=== PATIENT | male | born 1970 | race American Indian/Alaskan Native ===

== ENCOUNTER 2017-04-02 02:55 | Emergency (ER) | payer OTHER ==
[2017-04-02 11:10] LABS: Basophils % (Auto) 0.6 % (0.0-1.8); Eosinophils % (Auto) 0.9 % (0.0-4.3); Hematocrit 44.3 % (35.5-45.6); Hemoglobin 15.5 gm/dl (11.8-15.2); Mean Corpuscular HGB Conc 35 % (32-34); Mean Corpuscular Hemoglobin 30 pg (28-32); Mean Corpuscular Volume 85 fl (84-94); Platelet Count 216 K/mm3 (140-440); Red Blood Count 5.19 M/mm3 (3.65-5.03); Red Cell Distribution Width 14.1 % (13.2-15.2); White Blood Count 8.7 K/mm3 (4.5-11.0)
[2017-04-02 11:27] LABS: Alanine Aminotransferase 21 units/L (7-56); Albumin 4.4 g/dL (3.9-5); Albumin/Globulin Ratio 1.4 %; Alkaline Phosphatase 102 units/L (35-129); Anion Gap 17 mmol/L; BUN/Creatinine Ratio 3; Blood Urea Nitrogen 3 mg/dL (9-20); Calcium 9.4 mg/dL (8.4-10.2); Carbon Dioxide 25 mmol/L (22-30); Chloride 96.5 mmol/L (98-107); Glucose 128 mg/dL (75-100); Lipase 94 units/L (13-60); Potassium 4.5 mmol/L (3.6-5.0); Sodium 134 mmol/L (137-145); Total Protein 7.6 g/dL (6.3-8.2)
[2017-04-02 14:22] LABS: Bilirubin,Urine NEG (Negative); Blood,Urine NEG (Negative); Ketones,Urine NEG (Negative); Leukocyte Esterase,Urine NEG (Negative); Nitrite,Urine NEG (Negative); Protein,Urine <15 mg/dL mg/dL (Negative); Urobilinogen,Urine < 2.0 mg/dL (<2.0)
[2017-04-02 14:28] LABS: RBC,Urine < 1.0 /HPF (0.0-6.0); WBC,Urine < 1.0 /HPF (0.0-6.0)
[2017-04-02] MEDS ORDERED: CARAFATE PO ONE (15:10)
[2017-04-02] MEDS ORDERED: DILAUDID IV ONE ×2 (15:10→18:34)
[2017-04-02] MEDS ORDERED: PEPCID IV ONE (15:10)
[2017-04-02] MEDS ORDERED: BENTYL PO ONE (15:10)
--- NOTE | 2017-04-02 15:11 | Emergency Department Report ---
ED Abdominal Pain HPI - General Chief Complaint: Abdominal Pain Stated Complaint: ABD PAIN Time Seen by Provider: 04/02/17 14:35 Source: patient, RN notes reviewed, old records reviewed Mode of arrival: Ambulatory Limitations: No Limitations - History of Present Illness Initial Comments: This is a 46-year-old male, previously known to this provider. Has a past medical history of chronic pancreatitis, tobacco and alcohol consumption Primary care Dr.: Dr. Radha Cornejo Patient also reports that he has chronic pain and for multiple musculoskeletal issues, sees a pain specialist, and typically takes oxycodone 10 mg every 6 hours. The patient presents to the ER with a complaint of epigastric pain and lower quadrant abdominal pain for one month. Patient reports that the pain started after he ate something. He believes he ate at [employer] about a month ago, and "has not been right since. " He has no testicular pain, and he denies hematuria and urinary frequency. He reports his symptoms feel similar to prior episodes of pancreatitis. His pain is intermittent, and increases with palpation and decreases with rest. He denies diarrhea. He reports that he feels constipated. He denies cough and mucus production, and he denies chest pain and severe shortness of breath. MD Complaint: abdominal pain -: Gradual, week(s) Location: diffuse Severity: moderate Severity scale (0 -10): 10 Quality: cramping Consistency: intermittent Improves With: rest Worsens With: movement Associated Symptoms: constipation. denies: vomiting, fever, dysuria - Related Data Home Medications Medication Instructions Recorded Confirmed Last Taken HYDROcodone/APAP 5-325 [[place] 5 - 325 mg PO Q6HR 12/20/13 07/13/14 01/05/14 5-325 mg TAB] Previous Rx's Medication Instructions Recorded Last Taken Type Ondansetron [Zofran ODT TAB] 4 mg PO Q8HR PRN #10 tab.rapdis 07/13/14 Unknown Rx Promethazine [Phenergan] 25 mg PO Q6H PRN #10 tablet 07/13/14 Unknown Rx Acetaminophen [Tylenol Arthritis] 650 mg PO Q6HR PRN #30 tablet.er 04/02/17 Unknown Rx Ibuprofen [Motrin] 600 mg PO Q8H PRN #30 tablet 04/02/17 Unknown Rx Ondansetron [Zofran Odt] 4 mg PO Q8HR PRN #20 tab.rapdis 04/02/17 Unknown Rx Sucralfate [Carafate] 1 gm PO ACHS #120 udc 04/02/17 Unknown Rx Allergies Allergy/AdvReac Type Severity Reaction Status Date / Time No Known Allergies Allergy Verified 03/12/13 23:13 ED Review of Systems ROS: Stated complaint: ABD PAIN Other details as noted in HPI Constitutional: denies: fever Eyes: denies: vision change ENT: denies: epistaxis Respiratory: denies: cough Cardiovascular: denies: chest pain Gastrointestinal: abdominal pain Genitourinary: denies: testicular pain Musculoskeletal: as per HPI Skin: denies: lesions Neurological: denies: headache Psychiatric: anxiety ED Past Medical Hx - Past Medical History Previous Medical History?: Yes Additional medical history: chronic pancreatitis. Chronic Pain - Surgical History Past Surgical History?: No - Social History Smoking Status: Current Every Day Smoker Substance Use Type: Alcohol, Prescribed - Medications Home Medications: Home Medications Medication Instructions Recorded Confirmed Last Taken Type HYDROcodone/APAP 5-325 [[place] 5 - 325 mg PO Q6HR 12/20/13 07/13/14 01/05/14 History 5-325 mg TAB] Ondansetron [Zofran ODT TAB] 4 mg PO Q8HR PRN #10 tab.rapdis 07/13/14 Unknown Rx Promethazine [Phenergan] 25 mg PO Q6H PRN #10 tablet 07/13/14 Unknown Rx Acetaminophen [Tylenol Arthritis] 650 mg PO Q6HR PRN #30 tablet.er 04/02/17 Unknown Rx Ibuprofen [Motrin] 600 mg PO Q8H PRN #30 tablet 04/02/17 Unknown Rx Ondansetron [Zofran Odt] 4 mg PO Q8HR PRN #20 tab.rapdis 04/02/17 Unknown Rx Sucralfate [Carafate] 1 gm PO ACHS #120 udc 04/02/17 Unknown Rx ED Physical Exam - General Limitations: No Limitations General appearance: alert, in no apparent distress - Head Head exam: Present: atraumatic, normocephalic - Eye Eye exam: Present: normal appearance, EOMI. Absent: nystagmus - ENT ENT exam: Present: normal exam, normal orophraynx, mucous membranes moist, normal external ear exam - Neck Neck exam: Present: normal inspection, full ROM - Respiratory Respiratory exam: Present: normal lung sounds bilaterally. Absent: respiratory distress, wheezes, rales, rhonchi, stridor, decreased breath sounds - Cardiovascular Cardiovascular Exam: Present: regular rate, normal rhythm, normal heart sounds. Absent: bradycardia, tachycardia, irregular rhythm, systolic murmur, diastolic murmur, rubs, gallop - GI/Abdominal GI/Abdominal exam: Present: soft, tenderness, normal bowel sounds, other (there is epigastric tenderness. There is lower quadrant tenderness, no redness, pus or streaking). Absent: distended, guarding, rebound, rigid, pulsatile mass - Rectal Rectal exam: Present: deferred - exam: Present: normal inspection. Absent: testicular tenderness External exam: Present: normal external exam, other (there is no testicular tenderness. There is normal testicular lie bilaterally. There is normal cremasteric reflex bilaterally.) - Extremities Exam Extremities exam: Present: normal inspection, full ROM, normal capillary refill. Absent: pedal edema, joint swelling, calf tenderness - Back Exam Back exam: Present: normal inspection, full ROM. Absent: paraspinal tenderness - Neurological Exam Neurological exam: Present: alert, oriented X3, normal gait, other (Extraocular movements intact. Tongue midline. No facial droop. Facial sensation intact to light touch in the V1, V2, V3 distribution bilaterally. 5 and 5 strength in 4 extremities.. Sensation is intact to light touch in 4 extremities.). Absent : motor sensory deficit - Psychiatric Psychiatric exam: Present: normal affect, normal mood - Skin Skin exam: Present: warm, dry, intact, normal color. Absent: rash ED Course Vital Signs 04/02/17 04/02/17 04/02/17 03:00 03:01 14:18 Temperature 98.3 F 98.3 F Pulse Rate 73 73 Respiratory 16 20 Rate Blood Pressure 177/93 Blood Pressure 177/93 [Right] O2 Sat by Pulse 96 96 Oximetry 04/02/17 17:28 Temperature Pulse Rate Respiratory 20 Rate Blood Pressure Blood Pressure [Right] O2 Sat by Pulse Oximetry - Reevaluation(s) Reevaluation #1: 04/02/17 18:43 Patient reports that his living supervisor is Dr. Mir Franco, and he will follow up with him next week. ED Medical Decision Making - Lab Data Result diagrams: 04/02/17 10:54 04/02/17 10:54 Vital Signs 04/02/17 04/02/17 04/02/17 03:00 03:01 14:18 Temperature 98.3 F 98.3 F Pulse Rate 73 73 Respiratory 16 20 Rate Blood Pressure 177/93 Blood Pressure 177/93 [Right] O2 Sat by Pulse 96 96 Oximetry 04/02/17 17:28 Temperature Pulse Rate Respiratory 20 Rate Blood Pressure Blood Pressure [Right] O2 Sat by Pulse Oximetry Lab Results 04/02/17 04/02/17 04/02/17 Range/Units 10:54 10:54 13:56 WBC 8.7 (4.5-11.0) K/mm3 RBC 5.19 H (3.65-5.03) M/mm3 Hgb 15.5 H (11.8-15.2) gm/dl Hct 44.3 (35.5-45.6) % MCV 85 (84-94) fl MCH 30 (28-32) pg MCHC 35 H (32-34) % RDW 14.1 (13.2-15.2) % Plt Count 216 (140-440) K/mm3 Lymph % (Auto) 20.8 (13.4-35.0) % [place] % (Auto) 6.3 (0.0-7.3) % Eos % (Auto) 0.9 (0.0-4.3) % Baso % (Auto) 0.6 (0.0-1.8) % Lymph # 1.8 (1.2-5.4) K/mm3 [place] # 0.5 (0.0-0.8) K/mm3 Eos # 0.1 (0.0-0.4) K/mm3 Baso # 0.0 (0.0-0.1) K/mm3 Seg Neutrophils % 71.4 H (40.0-70.0) % Seg Neutrophils # 6.2 (1.8-7.7) K/mm3 Sodium 134 L (137-145) mmol/L Potassium 4.5 (3.6-5.0) mmol/L Chloride 96.5 L (98-107) mmol/L Carbon Dioxide 25 (22-30) mmol/L Anion Gap 17 mmol/L BUN 3 L (9-20) mg/dL Creatinine 0.9 (0.8-1.5) mg/dL Estimated GFR > 60 ml/min BUN/Creatinine Ratio 3 % Glucose 128 H (75-100) mg/dL Calcium 9.4 (8.4-10.2) mg/dL Total Bilirubin 0.60 (0.1-1.2) mg/dL AST 21 (5-40) units/L ALT 21 (7-56) units/L Alkaline Phosphatase 102 (35-129) units/L Total Protein 7.6 (6.3-8.2) g/dL Albumin 4.4 (3.9-5) g/dL Albumin/Globulin Ratio 1.4 % Lipase 94 H (13-60) units/L Urine Color Yellow (Yellow) Urine Turbidity Clear (Clear) Urine pH 6.0 (5.0-7.0) Ur Specific [place] 1.004 (1.003-1.030) Urine Protein <15 mg/dl (Negative) mg/dL Urine Glucose (UA) Neg (Negative) mg/dL Urine Ketones Neg (Negative) mg/dL Urine Blood Neg (Negative) Urine Nitrite Neg (Negative) Urine Bilirubin Neg (Negative) Urine Urobilinogen < 2.0 (<2.0) mg/dL Ur Leukocyte Esterase Neg (Negative) Urine WBC (Auto) < 1.0 (0.0-6.0) /HPF Urine RBC (Auto) < 1.0 (0.0-6.0) /HPF - Radiology Data Radiology results: report reviewed, image reviewed CT scan of the abdomen and pelvis with IV contrast: Pulmonary opacities suggest atelectasis, groundglass opacities noted with atelectasis. Course calcifications noted throughout the pancreas. The pancreatic duct is prominent. Subcentimeter area of low attenuation noted in the pancreas. Subtle stranding noted in the proximal descending colon. There is a focal area of narrowing just proximal to this. Ascending colon and cecum are distended and filled with stool, possible normal caliber air-filled appendix is suggested , mildly fluid filled and prominent ileum without definite transition point. No secondary signs of appendicitis. Impression: Atelectasis in pulmonary opacities. Course calcifications in the pancreas, likely sequela of chronic pancreatitis. Consider subtle colitis. Consider mild ileus. Consider Constipation. - Medical Decision Making Differential diagnosis: Pancreatitis, constipation, narcotic bowel syndrome, cyclic vomiting syndrome, irritable bowel syndrome Assessment and plan: 46-year-old male with 1 month of abdominal pain. He is afebrile with reassuring vital signs, has a minimally tender belly. Patient on chronic oxycodone for pain management, and most likely has a component of narcotic bowel syndrome. CT scan has numerous incidental findings. Clinically doubt pneumonia given lack of focal lung findings, lack of cough, mucus production, shortness of breath and hypoxia. Therefore, do not think emergent chest x-ray is indicated at this time. Patient observed in the ER for a prolonged period of time without clinical decompensation, he is walking without difficulty. Doubt ileus/obstruction as the patient was given oral medication and did not vomit. Instructed the patient that he would need to follow up with outpatient gastroenterology or primary care for the numerous incidental findings and his CT scan. Counseled patient that he should Descalate narcotic therapy as this is most likely contributing to his symptoms. Patient will be discharged at this time, return precautions are reviewed, patient given a copy of his CT scan report. Critical care attestation.: If time is entered above; I have spent that time in minutes in the direct care of this critically ill patient, excluding procedure time. ED Disposition Clinical Impression: Chronic pancreatitis Disposition: DC-01 TO HOME OR SELFCARE Is pt being admited?: No Does the pt Need Aspirin: No Condition: Stable Additional Instructions: Take the pain medication, nausea medication as directed. CT scan did not demonstrate any emergent condition that would require emergent intervention, but did demonstrate a number of incidental findings which should be followed up by either primary care or gastroenterology within the next month. Follow up with a primary care doctor or living supervisor within the next month. Highly suspect that chronic oxycodone consumption as a contributor factor to abdominal pain, therefore follow up with your pain specialist or primary care doctor, and consider decreasing and eliminating oxycodone as a prescription, as this is most likely an inciting factor in the abdominal pain. Return to the ER right away with new pain, worsening pain, migration of pain, fevers, chills, lethargy , irritability, projectile vomiting, change in mental status, inability to tolerate liquid feeds. Doubt cancer/tumor and malignancy, but it would be very important to follow up with your primary care doctor or your living supervisor for incidental findings and your CT scan reports to exclude cancer/tumor malignancy Prescriptions: Acetaminophen [Tylenol Arthritis] 650 mg PO Q6HR PRN #30 tablet.er PRN Reason: Pain Ibuprofen [Motrin] 600 mg PO Q8H PRN #30 tablet PRN Reason: Pain Ondansetron [Zofran Odt] 4 mg PO Q8HR PRN #20 tab.rapdis PRN Reason: Nausea Sucralfate [Carafate] 1 gm PO ACHS #120 [facility] [place] Referrals: RADHA CORNEJO MD [Primary Care Provider] - 3-5 Days GILLIAN CURIEL MD [Staff Physician] - 3-5 Days
[2017-04-02] MEDS ORDERED: BENTYL ONE (15:28)
[2017-04-02] MEDS ORDERED: DILAUDID ONE ×2 (15:53→18:58)
--- NOTE | 2017-04-02 17:49 | Cat Scan Report ---
FINAL REPORT PROCEDURE: CT ABDOMEN PELVIS W CON TECHNIQUE: Computerized axial tomography of the abdomen and pelvis was performed after the IV injection of iodinated nonionic contrast. Sagittal images limited due to suboptimal patient positioning. Re-formatted and delayed images available. DLP 1484.94 mGy-cm. HISTORY: Abdominal pain. COMPARISON: No prior studies are available for comparison. FINDINGS: Visualized lower thorax: Lingular and right middle lobe atelectasis. Mild bibasilar ground-glass opacities. Liver: Normal size and attenuation. Subtle area of low attenuation about the falciform likely focal fatty change Spleen: Normal size and attenuation. Gallbladder and biliary system: Normal. Pancreas: There are coarse calcifications throughout the pancreas. Pancreatic duct is prominent. A few sub centimeter areas of low attenuation seen in the tail of the pancreas. Adrenals: Normal. Kidneys: Normal. GI tract: Subtle stranding about the proximal descending colon. Focal area of narrowing just proximal to this. Moderately distended air-filled transverse colon. Ascending colon and cecum moderately distended with stool. Although not definite, on delayed images possible normal caliber air-filled appendix (image 62 series 4). Mildly fluid-filled and prominent ileum without definite transition point. Lymph nodes and mesentery: Normal. Vasculature: Normal. Bladder: Normal. Reproductive organs: Normal. Peritoneum: No free fluid. Musculoskeletal structures: Small multilevel osteophytes. Mild L4-5 and L5-S1 disc bulges. Other: None. IMPRESSION: Pulmonary opacities suggest atelectasis, consider correlation with chest radiograph. Coarse calcifications in the pancreas. Pancreatic duct is prominent. Several areas of low attenuation about the tail of the pancreas. Consider sequela of chronic pancreatitis. Although no obvious inflammatory stranding seen at this time, consider correlation with lipase if there is concern for subtle acute pancreatitis. Also consider further evaluation including MRI if there is concern for underlying cystic neoplasm including intraductal papillary mucinous neoplasm (and if patient has no contraindication to MRI). Normal appendix not confidently seen. No secondary signs of appendicitis. Consider further evaluation if appendiceal pathology is of continued clinical concern. Subtle stranding about the proximal descending colon may be volume averaging but consider subtle colitis. Focal area of narrowing just proximal to this with moderately distended air-filled transverse colon and ascending colon cecum moderately distended with stool. This could be related to normal peristalsis. Consider constipation. Consider further evaluation and followup including contrasted examination or colonoscopy if there is continued clinical concern for colonic pathology. Consider mild ileus. Other incidental findings as above.
[2017-04-02 19:47] VITALS: BP 118/92
== END 2017-04-02 19:24 | disposition home or self-care (01) ==
LOC: ED 02:55
DX: K86.1 Other chronic pancreatitis (principal); F17.200 Nicotine dependence, unspecified, uncomplicated
CPT/HCPCS: 36415; 74177; 80053; 81001; 83690; 85025; 96374; 96375; 99284; J1170; Q9967

== ENCOUNTER 2018-03-05 12:02 | Outpatient (CLI) | payer OTHER ==
--- NOTE | 2018-03-05 13:57 | XRay Report ---
RIGHT KNEE, 3 views: History: Pain in right knee A large joint effusion is identified on the lateral image. There is normal bone mineralization. Mild medial compartment joint space narrowing and marginal spurring is identified. Minimal retropatellar spurring. The lateral compartment is unremarkable. No evidence for fracture or bone lesion. IMPRESSION: Mild medial compartment degenerative changes. Large joint effusion. If internal derangement is suspected, MRI could be obtained.
== END 2018-03-05 12:03 | disposition home or self-care (01) ==
LOC: XRAY 12:02
PROVIDERS: ATTEND Pain Medicine Interventional Pain Medicine
DX: M17.11 Unilateral primary osteoarthritis, right knee (principal); M25.461 Effusion, right knee; Z87.891 Personal history of nicotine dependence

== ENCOUNTER 2018-07-23 05:14 | Emergency (ER) | payer OTHER ==
[2018-07-23 05:47] VITALS: BP 137/99
[2018-07-23 06:11] LABS: Basophils # (Auto) 0.1 K/mm3 (0.0-0.1); Basophils % (Auto) 0.6 % (0.0-1.8); Eosinophils % (Auto) 0.2 % (0.0-4.3); Hematocrit 48.7 % (35.5-45.6); Hemoglobin 16.7 gm/dl (11.8-15.2); Lymphocytes % (Auto) 8.3 % (13.4-35.0); Mean Corpuscular HGB Conc 34 % (32-34); Mean Corpuscular Volume 88 fl (84-94); Monocytes # (Auto) 0.5 K/mm3 (0.0-0.8); Monocytes % (Auto) 3.8 % (0.0-7.3); Platelet Count 279 K/mm3 (140-440); Red Blood Count 5.57 M/mm3 (3.65-5.03); Red Cell Distribution Width 14.5 % (13.2-15.2)
[2018-07-23 06:27] LABS: BUN/Creatinine Ratio 6; Blood Urea Nitrogen 5 mg/dL (9-20); Calcium 9.8 mg/dL (8.4-10.2); Hemolysis Index 10
[2018-07-23] MEDS ORDERED: ZOFRAN IV ONE ×2 (06:27→08:22)
[2018-07-23] MEDS ORDERED: NACL 0.9% 1000 ML 1,000 ML IV ONE (06:27)
--- NOTE | 2018-07-23 06:30 | Emergency Department Report ---
<IMTIAZ LARSON - Last Filed: 07/23/18 06:37> ED General Adult HPI - General Chief complaint: Pain General Stated complaint: CRAMPING ALL OVER BODY Time Seen by Provider: 07/23/18 06:16 Source: patient Mode of arrival: Ambulatory Limitations: No Limitations - History of Present Illness Initial comments: 48-year-old male comes in for generalized cramping 24 hours. Patient reports he's had nausea vomiting and copious amount of diarrhea. Patient reports a past medical history of pancreatitis and colitis. He is followed by Dr. Franco a embedded developer in [place]. Patient denies any fever chills. -: hour(s) (24) Location: abdomen Severity scale (0 -10): 10 Quality: other (cramping) Consistency: constant Improves with: none Worsens with: none Associated Symptoms: nausea/vomiting, other (diarrhea) Treatments Prior to Arrival: none - Related Data Previous Rx's Medication Instructions Recorded Last Taken Type Dicyclomine [Bentyl] 20 mg PO QID #20 tablet 07/23/18 Unknown Rx Ondansetron [Zofran Odt] 4 mg PO Q8HR PRN #10 tab.rapdis 07/23/18 Unknown Rx Allergies Allergy/AdvReac Type Severity Reaction Status Date / Time No Known Allergies Allergy Verified 03/12/13 23:13 ED Review of Systems Comment: All other systems reviewed and negative Constitutional: other (generalized cramping). denies: chills, fever Gastrointestinal: nausea, vomiting, diarrhea. denies: hematochezia Genitourinary: denies: urgency, dysuria ED Past Medical Hx - Past Medical History Previous Medical History?: Yes Additional medical history: chronic pancreatitis. Chronic Pain - Surgical History Past Surgical History?: Yes Additional Surgical History: B/L shoulder - Social History Smoking Status: Current Every Day Smoker Substance Use Type: Alcohol - Medications Home Medications: Home Medications Medication Instructions Recorded Confirmed Last Taken Type Dicyclomine [Bentyl] 20 mg PO QID #20 tablet 07/23/18 Unknown Rx Ondansetron [Zofran Odt] 4 mg PO Q8HR PRN #10 tab.rapdis 07/23/18 Unknown Rx ED Physical Exam - General Limitations: No Limitations General appearance: alert (that appears to be uncomfortable.), in no apparent distress - Head Head exam: Present: atraumatic, normocephalic - Eye Eye exam: Present: EOMI - ENT ENT exam: Present: mucous membranes moist - Neck Neck exam: Present: full ROM - Respiratory Respiratory exam: Present: normal lung sounds bilaterally. Absent: respiratory distress - Cardiovascular Cardiovascular Exam: Present: regular rate, normal rhythm. Absent: systolic murmur, diastolic murmur, rubs, gallop - GI/Abdominal GI/Abdominal exam: Present: soft, tenderness. Absent: distended - Extremities Exam Extremities exam: Present: full ROM - Back Exam Back exam: Present: normal inspection - Neurological Exam Neurological exam: Present: alert, oriented X3 - Psychiatric Psychiatric exam: Present: normal affect, normal mood - Skin Skin exam: Present: warm, dry, intact, normal color. Absent: rash ED Medical Decision Making - Lab Data Result diagrams: 07/23/18 05:55 07/23/18 05:55 - Medical Decision Making 16.0 mEq/L Anion Gap Infinity mEq/L Delta Ratio Suggests high anion gap acidosis with concurrent metabolic alkalosis (or compensated respiratory acidosis) Delta Gap: 4.0 14 mEq/L Corrected Anion Gap for Albumin Non-anion gap acidosis ED Disposition Clinical Impression: Colitis, Arthritis Disposition: DC-01 TO HOME OR SELFCARE Condition: Stable Instructions: Ulcerative Colitis (ED) Additional Instructions: DIET WE DISCUSSED BLAND-- HYDRATE WELL WITH WATER AVOID ALCOHOL MEDS ORDERED DO NOT TAKE ANTI DIARRHEA MEDS UNLESS TOLD TO BY DR FRANCO AVOID OPIATES BECAUSE THEY CAN MAKE ABD PAIN WORSE AVOID MOTRIN BECAUSE IT TO CAN CAUSE GI IRRITATION FOLLOW UP WITH DR FRANCO [place] LET HIM KNOW YOU HAD LABS DRAWN HERE AND HE MAY HAVE WHAT HE NEEDS Referrals: HANY BOWIEGIBSONTON MD RAMON [Primary Care Provider] - 3-5 Days <CECIL ESTEBAN - Last Filed: 07/23/18 08:09> ED Review of Systems ROS: Stated complaint: CRAMPING ALL OVER BODY Other details as noted in HPI ED Course Vital Signs 07/23/18 05:45 Temperature 97.9 F Pulse Rate 98 H Respiratory 18 Rate Blood Pressure 137/99 O2 Sat by Pulse 97 Oximetry - Reevaluation(s) Reevaluation #1: 07/23/18 08:00 Patient is a very pleasant 48-year-old -[place]i male who comes to the ER with GI complaints including abdominal cramping. He is well-known to Dr. Rivas gastroenterology. He has a history of colitis. He is supposed to see Dr. Franco soon for some blood work. Patient has been hydrated and is taking by mouth without difficulty. He still has abdominal cramping. There's been no vomiting or diarrhea in the last hour in the emergency room. I will discharge him home with GI follow-up ED Medical Decision Making - Lab Data Result diagrams: 07/23/18 05:55 07/23/18 05:55 - Medical Decision Making known colitis followed by Dr Franco taking PO abd snt no fever non toxic VSS hydrated no active n/v/d will dc home with GI follow up Critical care attestation.: If time is entered above; I have spent that time in minutes in the direct care of this critically ill patient, excluding procedure time. ED Disposition Is pt being admited?: No Does the pt Need Aspirin: No Time of Disposition: 08:02
[2018-07-23] MEDS ORDERED: MORPHINE IV ONE (06:39)
[2018-07-23] MEDS ORDERED: FLEXERIL ONE (06:42)
[2018-07-23 06:45] LABS: Alanine Aminotransferase 31 units/L (7-56); Albumin 4.8 g/dL (3.9-5)
[2018-07-23 06:46] LABS: Bilirubin,Direct < 0.2 mg/dL (0-0.2)
[2018-07-23 06:51] LABS: Bilirubin,Urine NEG (Negative); Blood,Urine NEG (Negative); Color,Urine Amber (Yellow); Mucus,Urine FEW /HPF; Urobilinogen,Urine < 2.0 mg/dL (<2.0)
[2018-07-23] MEDS ORDERED: TORADOL IV ONE (07:52)
[2018-07-23] MEDS ORDERED: BENTYL PO ONE (08:30)
== END 2018-07-23 08:30 | disposition home or self-care (01) ==
LOC: ED 05:14
DX: K52.9 Noninfective gastroenteritis and colitis, unspecified (principal); G89.29 Other chronic pain; M19.90 Unspecified osteoarthritis, unspecified site; F17.200 Nicotine dependence, unspecified, uncomplicated
CPT/HCPCS: 36415; 80048; 80076; 81001; 83690; 83735; 85025; 96361; 96374; 96375; 96376; 99283; J1885; J2270; J2405; J7030

== ENCOUNTER 2018-09-16 18:20 | Emergency (ER) | payer OTHER ==
[2018-09-16] MEDS ORDERED: ZOFRAN IV ONE (19:00)
[2018-09-16] MEDS ORDERED: NACL 0.9% 1000 ML 1,000 ML IV ONE (19:00)
[2018-09-16] MEDS ORDERED: MORPHINE IV ONE (19:00)
--- NOTE | 2018-09-16 19:05 | Emergency Department Report ---
ED Abdominal Pain HPI - General Chief Complaint: Abdominal Pain Stated Complaint: ABD PAIN/VOMITING Time Seen by Provider: 09/16/18 18:55 Source: EMS Mode of arrival: Stretcher Limitations: No Limitations - History of Present Illness Initial Comments: 48-year-old male with history of colitis, pancreatitis and alcohol abuse in the past, presents to the ED with complaint of abdominal pain 4 days, worsening today. Patient reports nausea, vomiting. Denies fever, diarrhea. Patient states he has not been drinking except for one beer earlier today. Thinks symptoms are due to something that he may have eaten. MD Complaint: abdominal pain -: days(s) (4) Location: periumbilical Radiation: none Migration to: no migration Severity: moderate Severity scale (0 -10): 0 Quality: cramping Consistency: intermittent Improves With: nothing Worsens With: nothing Associated Symptoms: nausea, vomiting. denies: diarrhea, fever - Related Data Previous Rx's Medication Instructions Recorded Last Taken Type Dicyclomine [Bentyl] 20 mg PO QID #20 tablet 07/23/18 Unknown Rx Ondansetron [Zofran Odt] 4 mg PO Q8HR PRN #10 tab.rapdis 07/23/18 Unknown Rx Dicyclomine [Bentyl] 20 mg PO QID PRN #20 tablet 09/16/18 Unknown Rx Ondansetron [Zofran Odt] 4 mg PO Q8HR PRN #20 tab.rapdis 09/16/18 Unknown Rx Promethazine [Phenergan TAB] 25 mg PO Q6HR PRN #20 tab 09/16/18 Unknown Rx traMADol [Ultram] 50 mg PO Q6HR PRN #7 tablet 09/16/18 Unknown Rx Allergies Allergy/AdvReac Type Severity Reaction Status Date / Time No Known Allergies Allergy Verified 03/12/13 23:13 ED Review of Systems ROS: Stated complaint: ABD PAIN/VOMITING Other details as noted in HPI Comment: All other systems reviewed and negative Constitutional: denies: chills, fever Gastrointestinal: abdominal pain, nausea, vomiting. denies: diarrhea ED Past Medical Hx - Past Medical History Previous Medical History?: Yes Additional medical history: chronic pancreatitis, Bowel obstruction. Chronic P ain - Surgical History Past Surgical History?: Yes Additional Surgical History: B/L shoulder - Social History Smoking Status: Heavy Tobacco Smoker Substance Use Type: Alcohol - Medications Home Medications: Home Medications Medication Instructions Recorded Confirmed Last Taken Type Dicyclomine [Bentyl] 20 mg PO QID #20 tablet 07/23/18 Unknown Rx Ondansetron [Zofran Odt] 4 mg PO Q8HR PRN #10 tab.rapdis 07/23/18 Unknown Rx Dicyclomine [Bentyl] 20 mg PO QID PRN #20 tablet 09/16/18 Unknown Rx Ondansetron [Zofran Odt] 4 mg PO Q8HR PRN #20 tab.rapdis 09/16/18 Unknown Rx Promethazine [Phenergan TAB] 25 mg PO Q6HR PRN #20 tab 09/16/18 Unknown Rx traMADol [Ultram] 50 mg PO Q6HR PRN #7 tablet 09/16/18 Unknown Rx ED Physical Exam - General Limitations: No Limitations General appearance: alert, in no apparent distress - Head Head exam: Present: atraumatic, normocephalic - Eye Eye exam: Present: normal appearance - ENT ENT exam: Present: mucous membranes moist - Neck Neck exam: Present: normal inspection - Respiratory Respiratory exam: Present: normal lung sounds bilaterally. Absent: respiratory distress - Cardiovascular Cardiovascular Exam: Present: regular rate, normal rhythm - GI/Abdominal GI/Abdominal exam: Present: soft, tenderness (mild diffuse abdominal tenderness). Absent: distended - Extremities Exam Extremities exam: Present: normal inspection - Neurological Exam Neurological exam: Present: alert, oriented X3 - Psychiatric Psychiatric exam: Present: normal affect, normal mood - Skin Skin exam: Present: warm, dry, intact, normal color ED Course Vital Signs 09/16/18 09/16/18 09/16/18 18:30 18:35 18:45 Temperature 98 F Pulse Rate 79 90 86 Respiratory 26 H 16 13 Rate Blood Pressure 126/82 126/82 O2 Sat by Pulse 96 94 97 Oximetry 09/16/18 09/16/18 09/16/18 19:01 19:30 20:01 Temperature Pulse Rate 79 77 87 Respiratory 24 16 14 Rate Blood Pressure 117/64 115/65 115/65 O2 Sat by Pulse 98 96 Oximetry 09/16/18 09/16/18 09/16/18 20:42 21:00 21:30 Temperature Pulse Rate 81 82 Respiratory 24 22 Rate Blood Pressure 140/109 141/91 116/69 O2 Sat by Pulse Oximetry ED Medical Decision Making - Lab Data Result diagrams: 09/16/18 19:15 09/16/18 19:15 Critical care attestation.: If time is entered above; I have spent that time in minutes in the direct care of this critically ill patient, excluding procedure time. ED Disposition Clinical Impression: Pancreatitis, acute Disposition: DC-01 TO HOME OR SELFCARE Is pt being admited?: No Condition: Stable Instructions: Pancreatitis (ED) Prescriptions: Dicyclomine [Bentyl] 20 mg PO QID PRN #20 tablet PRN Reason: abdominal pain Promethazine [Phenergan TAB] 25 mg PO Q6HR PRN #20 tab PRN Reason: Nausea traMADol [Ultram] 50 mg PO Q6HR PRN #7 tablet PRN Reason: Pain Ondansetron [Zofran Odt] 4 mg PO Q8HR PRN #20 tab.rapdis PRN Reason: Vomiting Referrals: CHELE HERNANDEZ MD [Staff Physician] - 3-5 Days [facility] [Provider Group] - 3-5 Days [facility] [Referring] - 3-5 Days Time of Disposition: 21:37
[2018-09-16 19:39] LABS: Basophils % (Auto) 0.6 % (0.0-1.8); Eosinophils % (Auto) 0.7 % (0.0-4.3); Hematocrit 40.8 % (35.5-45.6); Hemoglobin 13.8 gm/dl (11.8-15.2); Lymphocytes # (Auto) 1.5 K/mm3 (1.2-5.4); Lymphocytes % (Auto) 24.7 % (13.4-35.0); Mean Corpuscular HGB Conc 34 % (32-34); Mean Corpuscular Volume 89 fl (84-94); Monocytes # (Auto) 0.3 K/mm3 (0.0-0.8); Monocytes % (Auto) 5.5 % (0.0-7.3); Platelet Count 195 K/mm3 (140-440); Red Blood Count 4.59 M/mm3 (3.65-5.03); Red Cell Distribution Width 13.4 % (13.2-15.2)
[2018-09-16 19:51] LABS: Alanine Aminotransferase 25 units/L (7-56); Albumin 4.1 g/dL (3.9-5); BUN/Creatinine Ratio 4; Blood Urea Nitrogen 4 mg/dL (9-20); Calcium 8.6 mg/dL (8.4-10.2); Hemolysis Index 13
[2018-09-16] MEDS ORDERED: DILAUDID IV ONE (20:42)
--- NOTE | 2018-09-16 20:53 | Cat Scan Report ---
PROCEDURE: CT ABDOMEN PELVIS W CON TECHNIQUE: Computerized axial tomography of the abdomen and pelvis was performed after the IV inject ion of iodinated nonionic contrast. CT DOSE LENGTH PRODUCT: 2142.1 mGycm HISTORY: abd pain COMPARISONS: None . FINDINGS: This study is limited due to streak artifacts from the arms. Liver, spleen and adrenal glands are wit hin normal limits. Bilateral kidneys demonstrate uniform enhancement without hydronephrosis. Urinary bladder is well-distended with normal outlines. Aorta is of normal caliber. Minimal degree of free fl uid is noted in the pelvic cavity. There is no free air. Mild prostatomegaly is identified. Gallbladd er is unremarkable. Small bowel loops are within normal limits. Appendix is normal. Irregular calcifi cations are identified throughout pancreas. There is moderate degree induration of the peripancreatic fat planes. A focal fluid collection is not identified. Mild degree of thickening of the gastric wal ls is noted most likely due to extension of inflammation of the peripancreatic region. Vertebral heig ht is normal. IMPRESSION: Pancreatic findings are most consistent with acute on chronic pancreatitis. The focal fluid collection is not identified at the present time Minimal degree of ascites. This document is electronically signed by Julio Gómez MD., September 16 2018 08:52:00 PM ET
[2018-09-16 21:42] VITALS: BP 116/69
== END 2018-09-16 21:55 | disposition home or self-care (01) ==
LOC: ED 18:20
DX: K85.90 Acute pancreatitis without necrosis or infection, unspecified (principal); F17.200 Nicotine dependence, unspecified, uncomplicated; G89.29 Other chronic pain
CPT/HCPCS: 36415; 74177; 80053; 83690; 85025; 96361; 96374; 96375; 99284; J1170; J2270; J2405; J7030; Q9967

== ENCOUNTER 2019-03-09 23:12 | Emergency (ER) | payer OTHER ==
[2019-03-09 23:28] VITALS: BP 126/82
[2019-03-10] MEDS ORDERED: ONDANSETRON 4 MG ODT TAB PO ONE (00:25)
[2019-03-10] MEDS ORDERED: HYDROcodone/ACETAMINOPHEN 10-325MG TAB PO ONE (00:25)
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
== END 2019-03-10 02:09 | disposition home or self-care (01) ==
LOC: ED 23:12
DX: S16.1XXA Strain of muscle, fascia and tendon at neck level, initial encounter (principal); J44.9 Chronic obstructive pulmonary disease, unspecified; F17.200 Nicotine dependence, unspecified, uncomplicated; Z79.899 Other long term (current) drug therapy; V89.2XXA Person injured in unspecified motor-vehicle accident, traffic, initial encounter; Y93.89 Activity, other specified; Y92.488 Other paved roadways as the place of occurrence of the external cause; Y99.8 Other external cause status
CPT/HCPCS: 72125; 99283; Q0162

== ENCOUNTER 2020-01-19 03:20 | Emergency (ER) | payer OTHER ==
[2020-01-19] MEDS ORDERED: ASPIRIN 325 MG TAB PO ONE (03:47)
[2020-01-19 05:06] LABS: Bilirubin,Urine NEG (Negative); Blood,Urine SM (Negative); Color,Urine Yellow (Yellow); Protein,Urine <15 mg/dL mg/dL (Negative); Urobilinogen,Urine < 2.0 mg/dL (<2.0)
[2020-01-19 05:07] LABS: BUN/Creatinine Ratio 3; Basophils # (Auto) 0.1 K/mm3 (0.0-0.1); Basophils % (Auto) 1.2 % (0.0-1.8); Blood Urea Nitrogen 3 mg/dL (9-20); Calcium 9.5 mg/dL (8.4-10.2); Eosinophils # (Auto) 0.2 K/mm3 (0.0-0.4); Hematocrit 47.4 % (35.5-45.6); Hemoglobin 16.1 gm/dl (11.8-15.2); Hemolysis Index 8; Lymphocytes # (Auto) 1.5 K/mm3 (1.2-5.4); Lymphocytes % (Auto) 29.9 % (13.4-35.0); Mean Corpuscular HGB Conc 34 % (32-34); Mean Corpuscular Volume 88 fl (84-94); Monocytes # (Auto) 0.5 K/mm3 (0.0-0.8); Monocytes % (Auto) 9.9 % (0.0-7.3); Platelet Count 224 K/mm3 (140-440); Red Blood Count 5.38 M/mm3 (3.65-5.03)
[2020-01-19] MEDS ORDERED: LACTATED RINGERS 1,000 ML IV ONE (07:43)
[2020-01-19] MEDS ORDERED: HYDROmorphone 1 MG/1 ML INJ IV ONE (07:43)
[2020-01-19] MEDS ORDERED: ONDANSETRON 4 MG/2 ML INJ IV ONE (07:43)
--- NOTE | 2020-01-19 07:44 | Emergency Department Report ---
ED General Adult HPI - General Chief complaint: Chest Pain Stated complaint: ABD PAIN, CHEST PAIN PUI?: No Time Seen by Provider: 01/19/20 07:26 Source: patient, RN notes reviewed, old records reviewed Mode of arrival: Ambulatory Limitations: No Limitations - History of Present Illness Initial comments: Primary care doctor: Dr Radha Dewitt Gastroenterology: Dr. Westley Franco The patient is a 49-year-old gentleman. I have evaluated him in the past. Has a history of chronic pain, and pancreatitis. He presents to the ER today with a complaint of a few days to a week subxiphoid and bilateral upper quadrant abdominal pain, nausea, vomiting, with unintentional weight loss. He saw his primary care doctor for similar symptoms recently, and was given a Toradol shot which improved his symptomatology. He denies headache, neck pain, chest pain, exertional shortness of breath, diaphoresis, and DVT/pulmonary embolism risk factors. He last defecated yesterday, states that it was brown, without any blood. No testicular pain, no irritative/obstructive urinary symptoms. He has follow-up with his box toe buffer within the next few weeks, but comes in with an acute complaint of exacerbated abdominal pain, nausea, vomiting in the emergency room, he is treated with pain medicine and nausea medicine, which resolved his symptoms -: Gradual, days(s) Location: abdomen Radiation: non-radiation Severity scale (0 -10): 0 Quality: aching Consistency: intermittent Improves with: medication, rest Worsens with: movement, other (Nausea and vomit) - Related Data Previous Rx's Medication Instructions Recorded Last Taken Type Dicyclomine [Bentyl] 20 mg PO QID #20 tablet 07/23/18 Unknown Rx Ondansetron [Zofran Odt] 4 mg PO Q8HR PRN #10 tab.rapdis 07/23/18 Unknown Rx Dicyclomine [Bentyl] 20 mg PO QID PRN #20 tablet 09/16/18 Unknown Rx Ondansetron [Zofran Odt] 4 mg PO Q8HR PRN #20 tab.rapdis 09/16/18 Unknown Rx Promethazine [Phenergan TAB] 25 mg PO Q6HR PRN #20 tab 09/16/18 Unknown Rx Acetaminophen [Non-Aspirin Extra 500 mg PO Q6HR PRN #30 tablet 01/19/20 Unknown Rx Strength] Dicyclomine [Bentyl] 10 mg PO QID PRN #20 capsule 01/19/20 Unknown Rx Famotidine [Pepcid] 20 mg PO BID #60 tablet 01/19/20 Unknown Rx Nithya Root [Nithya] 250 mg PO QID PRN #30 capsule 01/19/20 Unknown Rx Metoclopramide [Reglan] 10 mg PO QID PRN #30 tablet 01/19/20 Unknown Rx Allergies Allergy/AdvReac Type Severity Reaction Status Date / Time No Known Allergies Allergy Verified 03/12/13 23:13 ED Review of Systems ROS: Stated complaint: ABD PAIN, CHEST PAIN Other details as noted in HPI Constitutional: denies: fever, malaise Eyes: denies: eye discharge ENT: denies: congestion Respiratory: denies: cough, wheezing Cardiovascular: denies: chest pain Gastrointestinal: abdominal pain, nausea, vomiting. denies: diarrhea, hematemesis, melena, hematochezia Genitourinary: denies: dysuria, testicular pain Musculoskeletal: arthralgia, myalgia Skin: denies: lesions Neurological: denies: weakness Hematological/Lymphatic: denies: easy bleeding ED Past Medical Hx - Past Medical History Previous Medical History?: Yes Hx COPD: Yes Additional medical history: chronic pancreatitis, Bowel obstruction. Chronic Pain - Surgical History Additional Surgical History: B/L shoulder - Social History Smoking Status: Never Smoker Substance Use Type: None - Medications Home Medications: Home Medications Medication Instructions Recorded Confirmed Last Taken Type Dicyclomine [Bentyl] 20 mg PO QID #20 tablet 07/23/18 Unknown Rx Ondansetron [Zofran Odt] 4 mg PO Q8HR PRN #10 tab.rapdis 07/23/18 Unknown Rx Dicyclomine [Bentyl] 20 mg PO QID PRN #20 tablet 09/16/18 Unknown Rx Ondansetron [Zofran Odt] 4 mg PO Q8HR PRN #20 tab.rapdis 09/16/18 Unknown Rx Promethazine [Phenergan TAB] 25 mg PO Q6HR PRN #20 tab 09/16/18 Unknown Rx Acetaminophen [Non-Aspirin Extra 500 mg PO Q6HR PRN #30 tablet 01/19/20 Unknown Rx Strength] Dicyclomine [Bentyl] 10 mg PO QID PRN #20 capsule 01/19/20 Unknown Rx Famotidine [Pepcid] 20 mg PO BID #60 tablet 01/19/20 Unknown Rx Nithya Root [Nithya] 250 mg PO QID PRN #30 capsule 01/19/20 Unknown Rx Metoclopramide [Reglan] 10 mg PO QID PRN #30 tablet 01/19/20 Unknown Rx ED Physical Exam - General Limitations: No Limitations General appearance: alert, in no apparent distress - Head Head exam: Present: atraumatic, normocephalic - Eye Eye exam: Present: normal appearance, EOMI. Absent: nystagmus - ENT ENT exam: Present: normal exam, normal orophraynx, mucous membranes moist, normal external ear exam - Neck Neck exam: Present: normal inspection, full ROM. Absent: tenderness, meningismus - Respiratory Respiratory exam: Present: normal lung sounds bilaterally. Absent: respiratory distress - Cardiovascular Cardiovascular Exam: Present: regular rate, normal rhythm, normal heart sounds. Absent: bradycardia, tachycardia, irregular rhythm, systolic murmur, diastolic murmur, rubs, gallop - GI/Abdominal GI/Abdominal exam: Present: soft, tenderness, other (There is epigastric and bilateral upper quadrant abdominal tenderness. There is a negative Melgoza sign. There is no lower quadrant tenderness. There is no rebound, guarding or peritoneal sign.). Absent: distended, guarding, rebound, rigid, pulsatile mass - Rectal Rectal exam: Present: deferred - Extremities Exam Extremities exam: Present: normal inspection, full ROM, other (2+ pulses noted in the bilateral upper and lower extremities. There is no palpable cord. negative Homans sign. Muscular compartments are soft. The pelvis is stable.). Absent: pedal edema, calf tenderness - Back Exam Back exam: Present: normal inspection, full ROM. Absent: tenderness, CVA tenderness (R), CVA tenderness (L), paraspinal tenderness, vertebral tenderness - Neurological Exam Neurological exam: Present: alert, other (No facial droop. Tongue midline. Extraocular movements intact bilaterally. Facial sensation intact to light touch in V1, V2, V3 distribution bilaterally. 5 and a 5 strength in 4 extremities. Sensation intact to light touch in 4 extremities.). Absent: motor sensory deficit - Psychiatric Psychiatric exam: Present: normal affect, normal mood - Skin Skin exam: Present: warm, dry, intact, normal color. 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 Prescriptions Filled ID Written Drug QTY Days Prescriber Rx # Pharmacy * Refills Daily Dose Pymt Type [employer]ORNEY AT [employer] 01/09/2020 1 01/09/2020 OXYCODONE-ACETAMINOPHEN 10-325 45.0 15 [place] PUL [id number] [facility] (8506) 0 45.0 [facility] [place] 12/26/2019 1 12/26/2019 OXYCODONE-ACETAMINOPHEN 10-325 45.0 15 [place] PUL [id number] [facility] (8506) 0 45.0 [facility] [place] 11/22/2019 1 11/22/2019 OXYCODONE-ACETAMINOPHEN 10-325 90.0 30 RA ANGELIQUE [id number] [facility] (8506) 0 45.0 [facility] [place] 10/21/2019 1 10/21/2019 OXYCODONE-ACETAMINOPHEN 10-325 63.0 30 GA BARBARA [id number] [facility] (8506) 0 31.5 [facility] [place] 09/21/2019 1 09/21/2019 OXYCODONE-ACETAMINOPHEN 10-325 90.0 30 RA ANGELIQUE [id number] [facility] (9615) 0 45.0 [facility] [place] 08/24/2019 1 08/24/2019 OXYCODONE-ACETAMINOPHEN 10-325 90.0 30 PA WHI [id number] [facility] (8506) 0 45.0 [facility] [place] 07/25/2019 2 07/25/2019 OXYCODONE-ACETAMINOPHEN 10-325 120.0 30 PA WHI [id number] [facility] (2302) 0 60.0 [facility] [place] 06/24/2019 1 06/24/2019 OXYCODONE-ACETAMINOPHEN 10-325 120.0 30 RA ANGELIQUE [id number] [facility] (8506) 0 60.0 [facility] [place] 05/25/2019 1 05/25/2019 OXYCODONE HCL 10 MG TABLET 120.0 30 PA WHI [id number] [facility] (8506) 0 60.0 [facility] [place] 04/22/2019 1 04/22/2019 OXYCODONE HCL 10 MG TABLET 120.0 30 GA BARBARA [id number] [facility] (8506) 0 60.0 [facility] [place] 03/25/2019 1 03/25/2019 OXYCODONE-ACETAMINOPHEN 10-325 120.0 30 PA WHI [id number] [facility] (8506) 0 60.0 [place] [place] 02/22/2019 1 02/21/2019 OXYCODONE-ACETAMINOPHEN 10-325 120.0 30 PA WHI [id number] [facility] (8506) 0 60.0 [place] [place] 01/24/2019 1 01/24/2019 OXYCODONE-ACETAMINOPHEN 10-325 120.0 30 PA WHI [id number] [facility] (8506) 0 60.0 [place] [place] 01/19/20 08:49 ED Medical Decision Making - Lab Data Result diagrams: 01/19/20 04:07 01/19/20 04:07 Vital Signs 01/19/20 07:30 Temperature 98.3 F Pulse Rate 74 Respiratory 19 Rate Blood Pressure 132/84 [Left] O2 Sat by Pulse 97 Oximetry Lab Results 01/19/20 01/19/20 01/19/20 Range/Units 04:07 04:07 06:43 WBC 5.1 (4.5-11.0) K/mm3 RBC 5.38 H (3.65-5.03) M/mm3 Hgb 16.1 H (11.8-15.2) gm/dl Hct 47.4 H (35.5-45.6) % MCV 88 (84-94) fl MCH 30 (28-32) pg MCHC 34 (32-34) % RDW 14.0 (13.2-15.2) % Plt Count 224 (140-440) K/mm3 Lymph % (Auto) 29.9 (13.4-35.0) % [place] % (Auto) 9.9 H (0.0-7.3) % Eos % (Auto) 4.0 (0.0-4.3) % Baso % (Auto) 1.2 (0.0-1.8) % Lymph # 1.5 (1.2-5.4) K/mm3 [place] # 0.5 (0.0-0.8) K/mm3 Eos # 0.2 (0.0-0.4) K/mm3 Baso # 0.1 (0.0-0.1) K/mm3 Seg Neutrophils % 55.0 (40.0-70.0) % Seg Neutrophils # 2.8 (1.8-7.7) K/mm3 Sodium 133 L (137-145) mmol/L Potassium 4.2 (3.6-5.0) mmol/L Chloride 96.1 L (98-107) mmol/L Carbon Dioxide 24 (22-30) mmol/L Anion Gap 17 mmol/L BUN 3 L (9-20) mg/dL Creatinine 1.0 (0.8-1.3) mg/dL Estimated GFR > 60 ml/min BUN/Creatinine Ratio 3 % Glucose 114 H (75-100) mg/dL Calcium 9.5 (8.4-10.2) mg/dL Magnesium 2.40 H (1.7-2.3) mg/dL Total Bilirubin 1.00 (0.1-1.2) mg/dL Direct Bilirubin 0.3 H (0-0.2) mg/dL Indirect Bilirubin 0.7 mg/dL AST 36 (5-40) units/L ALT 31 (7-56) units/L Alkaline Phosphatase 103 (35-129) units/L Total Creatine Kinase 169 (55-170) units/L Troponin T < 0.010 < 0.010 (0.00-0.029) ng/mL Total Protein 7.2 (6.3-8.2) g/dL Albumin 4.2 (3.9-5) g/dL Albumin/Globulin Ratio 1.4 % Lipase 46 (13-60) units/L Urine Color (Yellow) Urine Turbidity (Clear) Urine pH (5.0-7.0) Ur Specific [place] (1.003-1.030) Urine Protein (Negative) mg/dL Urine Glucose (UA) (Negative) mg/dL Urine Ketones (Negative) mg/dL Urine Blood (Negative) Urine Nitrite (Negative) Urine Bilirubin (Negative) Urine Urobilinogen (<2.0) mg/dL Ur Leukocyte Esterase (Negative) Urine WBC (Auto) (0.0-6.0) /HPF Urine RBC (Auto) (0.0-6.0) /HPF 01/19/20 Range/Units Unknown WBC (4.5-11.0) K/mm3 RBC (3.65-5.03) M/mm3 Hgb (11.8-15.2) gm/dl Hct (35.5-45.6) % MCV (84-94) fl MCH (28-32) pg MCHC (32-34) % RDW (13.2-15.2) % Plt Count (140-440) K/mm3 Lymph % (Auto) (13.4-35.0) % [place] % (Auto) (0.0-7.3) % Eos % (Auto) (0.0-4.3) % Baso % (Auto) (0.0-1.8) % Lymph # (1.2-5.4) K/mm3 [place] # (0.0-0.8) K/mm3 Eos # (0.0-0.4) K/mm3 Baso # (0.0-0.1) K/mm3 Seg Neutrophils % (40.0-70.0) % Seg Neutrophils # (1.8-7.7) K/mm3 Sodium (137-145) mmol/L Potassium (3.6-5.0) mmol/L Chloride (98-107) mmol/L Carbon Dioxide (22-30) mmol/L Anion Gap mmol/L BUN (9-20) mg/dL Creatinine (0.8-1.3) mg/dL Estimated GFR ml/min BUN/Creatinine Ratio % Glucose (75-100) mg/dL Calcium (8.4-10.2) mg/dL Magnesium (1.7-2.3) mg/dL Total Bilirubin (0.1-1.2) mg/dL Direct Bilirubin (0-0.2) mg/dL Indirect Bilirubin mg/dL AST (5-40) units/L ALT (7-56) units/L Alkaline Phosphatase (35-129) units/L Total Creatine Kinase (55-170) units/L Troponin T (0.00-0.029) ng/mL Total Protein (6.3-8.2) g/dL Albumin (3.9-5) g/dL Albumin/Globulin Ratio % Lipase (13-60) units/L Urine Color Yellow (Yellow) Urine Turbidity Clear (Clear) Urine pH 7.0 (5.0-7.0) Ur Specific [place] 1.005 (1.003-1.030) Urine Protein <15 mg/dl (Negative) mg/dL Urine Glucose (UA) Neg (Negative) mg/dL Urine Ketones Neg (Negative) mg/dL Urine Blood Sm (Negative) Urine Nitrite Neg (Negative) Urine Bilirubin Neg (Negative) Urine Urobilinogen < 2.0 (<2.0) mg/dL Ur Leukocyte Esterase Neg (Negative) Urine WBC (Auto) 1.0 (0.0-6.0) /HPF Urine RBC (Auto) 2.0 (0.0-6.0) /HPF - EKG Data -: EKG Interpreted by Me - EKG Data 01/19/20 08:40 EKG today is unchanged from prior EKG from January 2014 Sinus rhythm, 73 bpm, normal axis, QTC 444 ms, left ventricular hypertrophy, early repolarization, abnormal EKG, not a STEMI - Radiology Data Radiology results: report reviewed, image reviewed interpreted by me: 1 view x-ray of the chest, reviewed by myself, negative for acute finding Print Report Referring Physician: FIDENCIO QUEEN Patient Name: ABRAHAM PERRIN Date of : 1970 Sex: Male Report Date: 2020-01-19 Report Status: Finalized Findings [address] [address] Cat Scan Report Signed Patient: ABRAHAM PERRIN MR#: [id number] : 1970 Acct:[id number] Age/Sex: 49 / M ADM Date: 01/19/20 Loc: ED Attending Dr: Raymundo jasso Physician: FIDENCIO QUEEN MD Date of Service: 01/19/20 Procedure(s): CT abdomen pelvis w con Accession Number(s): [id number] cc: FIDENCIO QUEEN MD CT ABDOMEN AND PELVIS WITH CONTRAST HISTORY: acute abd paion COMPARISON: 09/16/2018 TECHNIQUE: Axial CT images were obtained through the abdomen and pelvis after 100 cc of Omnipaque 300 intravenously. Sagittal and coronal reformatted images. All CT scans at this location are performed using CT dose reduction for ALARA by means of automated exposure control. FINDINGS: CT ABDOMEN: Lung Bases: Clear. Liver: The liver is borderline enlarged with mild diffuse fatty infiltration. No focal lesion. Biliary: No significant abnormality. Spleen: No significant abnormality. Unenlarged. Pancreas: There are mild diffuse calcifications throughout the pancreas consistent with chronic pancreatitis. No obvious mass, pseudocyst or acute inflammatory changes. Adrenals: No significant abnormality. Kidneys: No significant abnormality. Lymphatics: No lymphadenopathy. Vasculature: No significant abnormality. Bowel/Peritoneum: No significant abnormality. No free air. No free fluid. Normal appendix. CT PELVIS: : No significant abnormality. Osseous Structures: No significant abnormality. Additional Findings: None IMPRESSION: Chronic pancreatitis. No CT evidence for acute on chronic pancreatitis on today's exam. Mild hepatic steatosis. Signer Name: Pankaj Larsen Jr, MD Signed: 01/19/2020 8:29 AM Workstation Name: [id number] Transcribed By: TTR Dictated By: PANKAJ LARSEN JR, MD Electronically Authenticated By: PANKAJ LARSEN JR, MD Signed Date/Time: 01/19/20828 DD/ 4 TD/TT: X-ray of the chest is negative for acute finding - Medical Decision Making Differential diagnosis, include but not limited to: Pancreatitis, colitis, diverticulitis, obstruction, GERD, gastritis, hiatal hernia Assessment and plan: 49-year-old gentleman with complaint of acute abdominal pain, nausea and vomiting, somewhat similar to a presentation that this patient had in 2017 when I previously evaluated him. He denies DVT and pulmonary embolism risk factors, he is not currently tachycardic, tachypneic or hypoxic, he is low risk by Wells criteria. He did not endorse chest pain to myself. Furthermore, troponin negative x2, EKG unchanged from prior, patient at low risk for major adverse cardiac event as per heart score. He was treated supportively and symptomatically, he appears improved clinically, belly soft on repeat exam, and is now currently engaged on looking at his cellular phone without active vomiting. He does not appear to have an acute medical condition at this time, he already has outpatient follow-up with his box toe buffer. In the past he has been on chronic pain medication, this may be a component of narcotic bowel syndrome, versus chronic pancreatitis. We will defer to his outpatient primary care doctor and/or box toe buffer to further evaluate and de-escalate narcotic therapy, if they deem it necessary Critical care attestation.: If time is entered above; I have spent that time in minutes in the direct care of this critically ill patient, excluding procedure time. ED Disposition Clinical Impression: Acute abdominal pain, History of nausea and vomiting Chronic pancreatitis Qualifiers: Pancreatitis type: other Qualified Code(s): K86.1 - Other chronic pancreatitis Disposition: DC- TO HOME OR SELFCARE Is pt being admited?: No Does the pt Need Aspirin: No Condition: Stable Additional Instructions: Do not take metformin medication for the next 2 days, if patient takes this medication. Minimize/avoid consumption of Motrin, ibuprofen, Naprosyn, Aleve, heavy and spic y foods. Take the pain medication, nausea medication as needed and directed. Avoid consumption of tobacco and alcohol. Patient's chronic narcotic therapy may be contributing to symptoms. Therefore, recommend de-escalation of narcotic therapy. Consider alternative methods of pain control, including massage, acupuncture, heat therapy/ice therapy, and nonnarcotic therapy, such as Pepcid, famotidine, Protonix, Tylenol/acetaminophen. Please discuss de-escalation of narcotic therapy with your primary care doctor, or pain specialist. Please follow-up with your outpatient primary care doctor, pain specialist or box toe buffer within the next 2 weeks. Please return to the emergency room right away with new pain, worsening pain, migration of pain, projectile vomiting, change in mental status, confusion, inability to tolerate liquid feeds, new, worsened or different symptoms not present on the initial emergency room evaluation. Referrals: BATSHEVA FRANCO MD [Staff Physician] - 7-10 days RADHA DEWITT MD [Staff Physician] - 7-10 days
[2020-01-19 08:10] LABS: Alanine Aminotransferase 31 units/L (7-56); Albumin 4.2 g/dL (3.9-5); Bilirubin,Direct 0.3 mg/dL (0-0.2)
--- NOTE | 2020-01-19 08:33 | Cat Scan Report ---
CT ABDOMEN AND PELVIS WITH CONTRAST HISTORY: acute abd paion COMPARISON: 09/16/2018 TECHNIQUE: Axial CT images were obtained through the abdomen and pelvis after 100 cc of Omnipaque 300 intravenously. Sagittal and coronal reformatted images. All CT scans at this location are performed using CT dose reduction for ALARA by means of automated exposure control. FINDINGS: CT ABDOMEN: Lung Bases: Clear. Liver: The liver is borderline enlarged with mild diffuse fatty infiltration. No focal lesion. Biliary: No significant abnormality. Spleen: No significant abnormality. Unenlarged. Pancreas: There are mild diffuse calcifications throughout the pancreas consistent with chronic pancr eatitis. No obvious mass, pseudocyst or acute inflammatory changes. Adrenals: No significant abnormality. Kidneys: No significant abnormality. Lymphatics: No lymphadenopathy. Vasculature: No significant abnormality. Bowel/Peritoneum: No significant abnormality. No free air. No free fluid. Normal appendix. CT PELVIS: : No significant abnormality. Osseous Structures: No significant abnormality. Additional Findings: None IMPRESSION: Chronic pancreatitis. No CT evidence for acute on chronic pancreatitis on today's exam. Mild hepatic steatosis. Signer Name: Pankaj Larsen Jr, MD Signed: 01/19/2020 8:29 AM Workstation Name: [id number]
[2020-01-19] MEDS ORDERED: SUCRALFATE 1 GM/10 ML ORAL LIQD PO ONE (08:35)
[2020-01-19 08:38] VITALS: BP 128/76
--- NOTE | 2020-01-19 08:47 | XRay Report ---
CHEST 1 VIEW INDICATION: Chest Pain. COMPARISON: None FINDINGS: Support devices: None. Heart: Within normal limits. Lungs/Pleura: No acute air space or interstitial disease. Additional findings: None. IMPRESSION: No acute findings. Signer Name: Pankaj Larsen Jr, MD Signed: 01/19/2020 8:42 AM Workstation Name: [id number]
== END 2020-01-19 10:16 | disposition home or self-care (01) ==
LOC: ED 03:20
DX: K86.1 Other chronic pancreatitis (principal); J44.9 Chronic obstructive pulmonary disease, unspecified
CPT/HCPCS: 36415; 71045; 74177; 80048; 80076; 81001; 82550; 83690; 83735; 84484; 85025; 93005; 96361; 96374; 96375; 99285; J1170; J2405; J7120; Q9967

== ENCOUNTER 2020-03-18 07:43 | Emergency (ER) | payer OTHER ==
[2020-03-18 07:50] VITALS: BP 97/68
[2020-03-18] MEDS ORDERED: KETOROLAC 30 MG/1 ML INJ IM ONE (08:33)
--- NOTE | 2020-03-18 08:47 | Emergency Department Report ---
ED Neck Pain/Injury HPI - General Chief Complaint: Neck Pain/Injury Stated Complaint: NECK PAIN Time Seen by Provider: 03/18/20 08:16 Mode of arrival: Ambulatory Limitations: No Limitations - History of Present Illness Initial Comments: The patient was evaluated in the emergency department for symptoms described in the history of present illness. He/she was evaluated in the context of the global COVID-19 pandemic, which necessitated consideration that the patient might be at risk for infection with the virus that causes COVID-19. Institutional protocols and algorithms that pertain to the evaluation of patients at risk for COVID-19 are in a state of rapid change based on information released by regulatory bodies including the CDC and federal and state organizations. These policies and algorithms were followed during the patient's care in the emergency department. Please note that these policies, procedures and recommendations changed on a rapid basis. 49-year-old -Mal[place]ian male presents to the emergency room for acute on chronic neck pain. Patient states that he had injections on his neck last week and on Thursday he discussed with his specialist that he was having increased pain that was radiating down his back. Patient states that the pain is worse when he turns to the left with increased pain. Patient states that his provider told him to follow-up in on Thursday. Patient currently is on a pain contract and takes oxycodone for his chronic pancreatitis and pain. Patient does admit to smoking cigarettes and drinking EtOH. Patient denies any new injury. Patient denies any fever no chills no vomiting no abdominal pain but does admit to chronic nausea from pancreatitis. MD Complaint: neck pain Onset/Timin -: days(s) Radiation: right lateral Severity: severe Severity scale (0 -10): 10 Quality: sharp Consistency: constant Worsens With: movement of neck Associated Symptoms: none Treatments Prior to Arrival: none - Related Data Previous Rx's Medication Instructions Recorded Last Taken Type Dicyclomine [Bentyl] 20 mg PO QID #20 tablet 07/23/18 Unknown Rx Ondansetron [Zofran Odt] 4 mg PO Q8HR PRN #10 tab.rapdis 07/23/18 Unknown Rx Dicyclomine [Bentyl] 20 mg PO QID PRN #20 tablet 09/16/18 Unknown Rx Ondansetron [Zofran Odt] 4 mg PO Q8HR PRN #20 tab.rapdis 09/16/18 Unknown Rx Promethazine [Phenergan TAB] 25 mg PO Q6HR PRN #20 tab 09/16/18 Unknown Rx Acetaminophen [Non-Aspirin Extra 500 mg PO Q6HR PRN #30 tablet 01/19/20 Unknown Rx Strength] Dicyclomine [Bentyl] 10 mg PO QID PRN #20 capsule 01/19/20 Unknown Rx Famotidine [Pepcid] 20 mg PO BID #60 tablet 01/19/20 Unknown Rx Nithya Root [Nithya] 250 mg PO QID PRN #30 capsule 01/19/20 Unknown Rx Metoclopramide [Reglan] 10 mg PO QID PRN #30 tablet 01/19/20 Unknown Rx Allergies Allergy/AdvReac Type Severity Reaction Status Date / Time No Known Allergies Allergy Verified 03/12/13 23:13 ED Review of Systems ROS: Stated complaint: NECK PAIN Other details as noted in HPI Comment: All other systems reviewed and negative ED Past Medical Hx - Past Medical History Previous Medical History?: Yes Hx COPD: Yes Additional medical history: chronic pancreatitis, Bowel obstruction. Chronic Pain, Neck pain - Surgical History Past Surgical History?: Yes Additional Surgical History: B/L shoulder - Social History Smoking Status: Current Every Day Smoker Substance Use Type: Alcohol, Prescribed - Medications Home Medications: Home Medications Medication Instructions Recorded Confirmed Last Taken Type Dicyclomine [Bentyl] 20 mg PO QID #20 tablet 07/23/18 Unknown Rx Ondansetron [Zofran Odt] 4 mg PO Q8HR PRN #10 tab.rapdis 07/23/18 Unknown Rx Dicyclomine [Bentyl] 20 mg PO QID PRN #20 tablet 09/16/18 Unknown Rx Ondansetron [Zofran Odt] 4 mg PO Q8HR PRN #20 tab.rapdis 09/16/18 Unknown Rx Promethazine [Phenergan TAB] 25 mg PO Q6HR PRN #20 tab 09/16/18 Unknown Rx Acetaminophen [Non-Aspirin Extra 500 mg PO Q6HR PRN #30 tablet 01/19/20 Unknown Rx Strength] Dicyclomine [Bentyl] 10 mg PO QID PRN #20 capsule 01/19/20 Unknown Rx Famotidine [Pepcid] 20 mg PO BID #60 tablet 01/19/20 Unknown Rx Nithya Root [Nithya] 250 mg PO QID PRN #30 capsule 01/19/20 Unknown Rx Metoclopramide [Reglan] 10 mg PO QID PRN #30 tablet 01/19/20 Unknown Rx ED Physical Exam - General Limitations: No Limitations General appearance: alert, in no apparent distress - Head Head exam: Present: atraumatic, normocephalic - Eye Eye exam: Present: normal appearance - ENT ENT exam: Present: normal exam, mucous membranes moist - Neck Neck exam: Present: tenderness, full ROM - Respiratory Respiratory exam: Present: normal lung sounds bilaterally. Absent: respiratory distress - Cardiovascular Cardiovascular Exam: Present: regular rate, normal rhythm. Absent: systolic murmur, diastolic murmur, rubs, gallop - Neurological Exam Neurological exam: Present: alert, oriented X3, normal gait - Psychiatric Psychiatric exam: Present: normal affect, normal mood - Skin Skin exam: Present: warm, dry, intact, normal color. Absent: rash ED Course Vital Signs 03/18/20 07:48 Temperature 98.3 F Pulse Rate 97 H Respiratory 18 Rate Blood Pressure 97/68 O2 Sat by Pulse 96 Oximetry ED Medical Decision Making - Medical Decision Making 49-year-old -Malaysian male presents to the emergency room for acute on chronic neck pain. Patient states that he had injections on his neck last week and on Thursday he discussed with his specialist that he was having increased pain that was radiating down his back. Patient states that the pain is worse when he turns to the left with increased pain. Patient states that his provider told him to follow-up in on Thursday. Patient currently is on a pain contract and takes oxycodone for his chronic pancreatitis and pain. Patient does admit to smoking cigarettes and drinking EtOH. Patient denies any new injury. Patient denies any fever no chills no vomiting no abdominal pain but does admit to chronic nausea from pancreatitis. Patient will be given a Toradol injection encouraged to take his chronic pain medication and to follow-up with his neck specialist. Patient does not have any signs of infection stable vital signs nontoxic in appearance full range of motion of neck.. Patient should follow-up with his neck specialist. Critical care attestation.: If time is entered above; I have spent that time in minutes in the direct care of this critically ill patient, excluding procedure time. ED Disposition Clinical Impression: Acute neck pain, Chronic midline posterior neck pain Disposition: DC- TO HOME OR SELFCARE Is pt being admited?: No Does the pt Need Aspirin: No Condition: Stable Instructions: Cervical Sprain (ED) Additional Instructions: Continue with your pain management medications follow-up with your neurologist/neck specialist. Referrals: GETACHEW SLOAN II, MD [Staff Physician] - 3-5 Days Forms: Work/School Release Form(ED)
== END 2020-03-18 09:06 | disposition home or self-care (01) ==
LOC: ED 07:43
DX: M54.2 Cervicalgia (principal); J44.9 Chronic obstructive pulmonary disease, unspecified; F17.200 Nicotine dependence, unspecified, uncomplicated; Z79.899 Other long term (current) drug therapy; Z98.890 Other specified postprocedural states
CPT/HCPCS: 96372; 99282; J1885

== ENCOUNTER 2020-04-03 18:06 | Inpatient (IN) | payer OTHER ==
--- NOTE | 2020-04-03 18:23 | Emergency Department Report ---
Blank Doc - Documentation Documentation: 49-year-old male that presents with chest pain, abdominal pain with n/v. This initial assessment/diagnostic orders/clinical plan/treatment(s) is/are subject to change based on patient's health status, clinical progression and re- assessment by fellow clinical providers in the ED. Further treatment and workup at subsequent clinical providers discretion. Patient/guardians urged not to elope from the ED as their condition may be serious if not clinically assessed and managed. Initial orders include: 1- Patient sent to [facility] for further evaluation and treatment 2- labs 3- EKG
[2020-04-03] MEDS ORDERED: ONDANSETRON 4 MG ODT TAB ONE (18:41)
[2020-04-03] MEDS ORDERED: ONDANSETRON 4 MG ODT TAB PO ONE (18:41)
[2020-04-03 20:00] LABS: Basophils % (Auto) 0.3 % (0.0-1.8); Eosinophils % (Auto) 0.2 % (0.0-4.3); Hematocrit 41.5 % (35.5-45.6); Hemoglobin 14.3 gm/dl (11.8-15.2); Lymphocytes # (Auto) 0.9 K/mm3 (1.2-5.4); Lymphocytes % (Auto) 12.2 % (13.4-35.0); Mean Corpuscular HGB Conc 35 % (32-34); Mean Corpuscular Volume 89 fl (84-94); Monocytes # (Auto) 0.4 K/mm3 (0.0-0.8); Monocytes % (Auto) 5.9 % (0.0-7.3); Platelet Count 185 K/mm3 (140-440); Red Blood Count 4.64 M/mm3 (3.65-5.03); Red Cell Distribution Width 14.1 % (13.2-15.2)
--- NOTE | 2020-04-03 20:01 | XRay Report ---
XR abd series w cxr 1VCHEST 1 VIEW, XR ABDOMEN 1 VIEW INDICATION / CLINICAL INFORMATION: abd pain w/ chest pain. COMPARISON: 01/19/2020 chest radiograph FINDINGS: SUPPORT DEVICES: None. HEART / MEDIASTINUM: No significant abnormality. LUNGS / PLEURA: Lungs are clear. Costophrenic sulci are sharp. No pneumothorax. ABDOMEN: Nonobstructive bowel gas pattern. No pneumoperitoneum. ADDITIONAL FINDINGS: There are couple of consultations in the the left upper quadrant likely in the p ancreas and sequela of chronic pancreatitis IMPRESSION: 1. No acute cardiopulmonary findings. 2. Nonobstructive bowel gas pattern. Signer Name: Patrick Porter MD Signed: 04/03/2020 7:57 PM Workstation Name: [id number]
[2020-04-03 20:21] LABS: INR 0.9 (0.87-1.13)
[2020-04-03 20:22] LABS: Partial Thromboplastin Time 26.1 Sec. (24.2-36.6)
[2020-04-03 21:11] LABS: Alanine Aminotransferase 30 units/L (7-56); Albumin 4.1 g/dL (3.9-5); BUN/Creatinine Ratio 4; Blood Urea Nitrogen 3 mg/dL (9-20); Calcium 9.2 mg/dL (8.4-10.2); Hemolysis Index 7
[2020-04-04] MEDS ORDERED: MORPHINE 4 MG/1 ML INJ IV ONE (08:10)
[2020-04-04] MEDS ORDERED: SODIUM CHLORIDE 0.9% 1000 ML 1,000 ML IV ONE ×2 (08:10→10:44)
[2020-04-04] MEDS ORDERED: ONDANSETRON 4 MG/2 ML INJ IV ONE (08:12)
--- NOTE | 2020-04-04 08:18 | Emergency Department Report ---
ED General Adult HPI - General Chief complaint: Abdominal Pain Stated complaint: ABD PAIN Time Seen by Provider: 04/03/20 18:22 Source: patient, family Mode of arrival: Wheelchair Limitations: No Limitations - History of Present Illness Initial comments: 49 yo AA M pt with hx of recurrent nonalcoholic pancreatitis presents with complaints of abdominal pain, vomiting, and diarrhea x 4 days. He denies any other past medical hx, hematemesis/coffee-ground emesis, melena/hematochezia, or history of abdominal surgeries, fever/chills/sweats, chest pain, cough, or shortness of breath. He rates his current pain as a 8/10 in severity and describes it as stabbing and constant. - Related Data Previous Rx's Medication Instructions Recorded Last Taken Type Dicyclomine [Bentyl] 20 mg PO QID #20 tablet 07/23/18 Unknown Rx Ondansetron [Zofran Odt] 4 mg PO Q8HR PRN #10 tab.rapdis 07/23/18 Unknown Rx Dicyclomine [Bentyl] 20 mg PO QID PRN #20 tablet 09/16/18 Unknown Rx Ondansetron [Zofran Odt] 4 mg PO Q8HR PRN #20 tab.rapdis 09/16/18 Unknown Rx Promethazine [Phenergan TAB] 25 mg PO Q6HR PRN #20 tab 09/16/18 Unknown Rx Acetaminophen [Non-Aspirin Extra 500 mg PO Q6HR PRN #30 tablet 01/19/20 Unknown Rx Strength] Dicyclomine [Bentyl] 10 mg PO QID PRN #20 capsule 01/19/20 Unknown Rx Famotidine [Pepcid] 20 mg PO BID #60 tablet 01/19/20 Unknown Rx Nithya Root [Nithya] 250 mg PO QID PRN #30 capsule 01/19/20 Unknown Rx Metoclopramide [Reglan] 10 mg PO QID PRN #30 tablet 01/19/20 Unknown Rx Allergies Allergy/AdvReac Type Severity Reaction Status Date / Time No Known Allergies Allergy Verified 03/12/13 23:13 ED Review of Systems ROS: Stated complaint: ABD PAIN Other details as noted in HPI Constitutional: malaise. denies: chills, diaphoresis, fever, weakness Eyes: denies: vision change Respiratory: denies: cough, shortness of breath Cardiovascular: denies: chest pain Endocrine: denies: excessive sweating Gastrointestinal: abdominal pain, nausea, vomiting, diarrhea. denies: constipation, hematemesis, melena, hematochezia Genitourinary: denies: urgency, dysuria, frequency, hematuria Skin: denies: rash, change in color Neurological: denies: headache Hematological/Lymphatic: denies: easy bleeding, swollen glands ED Past Medical Hx - Past Medical History Hx COPD: Yes Additional medical history: chronic pancreatitis, Bowel obstruction. Chronic Pain, Neck pain - Surgical History Additional Surgical History: B/L shoulder - Social History Smoking Status: Current Every Day Smoker Substance Use Type: None - Medications Home Medications: Home Medications Medication Instructions Recorded Confirmed Last Taken Type Dicyclomine [Bentyl] 20 mg PO QID #20 tablet 07/23/18 Unknown Rx Ondansetron [Zofran Odt] 4 mg PO Q8HR PRN #10 tab.rapdis 07/23/18 Unknown Rx Dicyclomine [Bentyl] 20 mg PO QID PRN #20 tablet 09/16/18 Unknown Rx Ondansetron [Zofran Odt] 4 mg PO Q8HR PRN #20 tab.rapdis 09/16/18 Unknown Rx Promethazine [Phenergan TAB] 25 mg PO Q6HR PRN #20 tab 09/16/18 Unknown Rx Acetaminophen [Non-Aspirin Extra 500 mg PO Q6HR PRN #30 tablet 01/19/20 Unknown Rx Strength] Dicyclomine [Bentyl] 10 mg PO QID PRN #20 capsule 01/19/20 Unknown Rx Famotidine [Pepcid] 20 mg PO BID #60 tablet 01/19/20 Unknown Rx Nithya Root [Nithya] 250 mg PO QID PRN #30 capsule 01/19/20 Unknown Rx Metoclopramide [Reglan] 10 mg PO QID PRN #30 tablet 01/19/20 Unknown Rx ED Physical Exam - General Limitations: No Limitations General appearance: alert, in no apparent distress - Head Head exam: Present: atraumatic, normocephalic - Eye Eye exam: Present: normal appearance. Absent: scleral icterus - ENT ENT exam: Present: mucous membranes moist - Respiratory Respiratory exam: Present: normal lung sounds bilaterally. Absent: respiratory distress - Cardiovascular Cardiovascular Exam: Present: regular rate, normal rhythm - GI/Abdominal GI/Abdominal exam: Present: soft, tenderness (Periumbilical), rebound, normal bowel sounds. Absent: distended, rigid - Extremities Exam Extremities exam: Present: normal inspection - Back Exam Back exam: Present: normal inspection - Neurological Exam Neurological exam: Present: alert, oriented X3, normal gait - Psychiatric Psychiatric exam: Present: normal affect, normal mood - Skin Skin exam: Present: warm, dry, intact, normal color. Absent: rash, cyanosis, diaphoretic ED Course Vital Signs 04/03/20 04/04/20 04/04/20 18:13 09:01 09:05 Temperature 97.5 F L 98.4 F Pulse Rate 80 65 Respiratory 22 20 20 Rate Blood Pressure 143/94 Blood Pressure 150/91 [Left] O2 Sat by Pulse 97 99 Oximetry 04/04/20 04/04/20 04/04/20 10:21 10:53 11:12 Temperature Pulse Rate 68 Respiratory 18 18 18 Rate Blood Pressure Blood Pressure 158/80 [Left] O2 Sat by Pulse 99 Oximetry ED Medical Decision Making - Lab Data Result diagrams: 04/03/20 19:49 04/03/20 19:49 Lab Results 04/03/20 04/03/20 04/03/20 Range/Units 19:49 19:49 19:49 WBC 7.3 (4.5-11.0) K/mm3 RBC 4.64 (3.65-5.03) M/mm3 Hgb 14.3 (11.8-15.2) gm/dl Hct 41.5 (35.5-45.6) % MCV 89 (84-94) fl MCH 31 (28-32) pg MCHC 35 H (32-34) % RDW 14.1 (13.2-15.2) % Plt Count 185 (140-440) K/mm3 Lymph % (Auto) 12.2 L (13.4-35.0) % Gibson % (Auto) 5.9 (0.0-7.3) % Eos % (Auto) 0.2 (0.0-4.3) % Baso % (Auto) 0.3 (0.0-1.8) % Lymph # (Auto) 0.9 L (1.2-5.4) K/mm3 Gibson # (Auto) 0.4 (0.0-0.8) K/mm3 Eos # (Auto) 0.0 (0.0-0.4) K/mm3 Baso # (Auto) 0.0 (0.0-0.1) K/mm3 Seg Neutrophils % 81.4 H (40.0-70.0) % Seg Neutrophils # 5.9 (1.8-7.7) K/mm3 PT 12.2 (12.2-14.9) Sec. INR 0.90 (0.87-1.13) APTT 26.1 (24.2-36.6) Sec. Sodium 135 L (137-145) mmol/L Potassium 4.0 (3.6-5.0) mmol/L Chloride 97.6 L (98-107) mmol/L Carbon Dioxide 26 (22-30) mmol/L Anion Gap 15 mmol/L BUN 3 L (9-20) mg/dL Creatinine 0.8 (0.8-1.3) mg/dL Estimated GFR > 60 ml/min BUN/Creatinine Ratio 4 % Glucose 115 H (75-100) mg/dL Calcium 9.2 (8.4-10.2) mg/dL Total Bilirubin 0.70 (0.1-1.2) mg/dL AST 34 (5-40) units/L ALT 30 (7-56) units/L Alkaline Phosphatase 98 (35-129) units/L Troponin T < 0.010 (0.00-0.029) ng/mL Total Protein 7.0 (6.3-8.2) g/dL Albumin 4.1 (3.9-5) g/dL Albumin/Globulin Ratio 1.4 % Lipase 657 H (13-60) units/L Urine Color (Yellow) Urine Turbidity (Clear) Urine pH (5.0-7.0) Ur Specific [place] (1.003-1.030) Urine Protein (Negative) mg/dL Urine Glucose (UA) (Negative) mg/dL Urine Ketones (Negative) mg/dL Urine Blood (Negative) Urine Nitrite (Negative) Urine Bilirubin (Negative) Urine Urobilinogen (<2.0) mg/dL Ur Leukocyte Esterase (Negative) Urine WBC (Auto) (0.0-6.0) /HPF Urine RBC (Auto) (0.0-6.0) /HPF U Epithel Cells (Auto) (0-13.0) /HPF Urine Mucus /HPF 04/04/20 Range/Units 08:55 WBC (4.5-11.0) K/mm3 RBC (3.65-5.03) M/mm3 Hgb (11.8-15.2) gm/dl Hct (35.5-45.6) % MCV (84-94) fl MCH (28-32) pg MCHC (32-34) % RDW (13.2-15.2) % Plt Count (140-440) K/mm3 Lymph % (Auto) (13.4-35.0) % Gibson % (Auto) (0.0-7.3) % Eos % (Auto) (0.0-4.3) % Baso % (Auto) (0.0-1.8) % Lymph # (Auto) (1.2-5.4) K/mm3 Gibson # (Auto) (0.0-0.8) K/mm3 Eos # (Auto) (0.0-0.4) K/mm3 Baso # (Auto) (0.0-0.1) K/mm3 Seg Neutrophils % (40.0-70.0) % Seg Neutrophils # (1.8-7.7) K/mm3 PT (12.2-14.9) Sec. INR (0.87-1.13) APTT (24.2-36.6) Sec. Sodium (137-145) mmol/L Potassium (3.6-5.0) mmol/L Chloride (98-107) mmol/L Carbon Dioxide (22-30) mmol/L Anion Gap mmol/L BUN (9-20) mg/dL Creatinine (0.8-1.3) mg/dL Estimated GFR ml/min BUN/Creatinine Ratio % Glucose (75-100) mg/dL Calcium (8.4-10.2) mg/dL Total Bilirubin (0.1-1.2) mg/dL AST (5-40) units/L ALT (7-56) units/L Alkaline Phosphatase (35-129) units/L Troponin T (0.00-0.029) ng/mL Total Protein (6.3-8.2) g/dL Albumin (3.9-5) g/dL Albumin/Globulin Ratio % Lipase (13-60) units/L Urine Color Yellow (Yellow) Urine Turbidity Clear (Clear) Urine pH 7.0 (5.0-7.0) Ur Specific [place] 1.018 (1.003-1.030) Urine Protein 30 mg/dl (Negative) mg/dL Urine Glucose (UA) Neg (Negative) mg/dL Urine Ketones 20 (Negative) mg/dL Urine Blood Sm (Negative) Urine Nitrite Neg (Negative) Urine Bilirubin Neg (Negative) Urine Urobilinogen 2.0 (<2.0) mg/dL Ur Leukocyte Esterase Neg (Negative) Urine WBC (Auto) 1.0 (0.0-6.0) /HPF Urine RBC (Auto) 8.0 (0.0-6.0) /HPF U Epithel Cells (Auto) < 1.0 (0-13.0) /HPF Urine Mucus Few /HPF - Radiology Data Radiology results: report reviewed CT ABDOMEN AND PELVIS WITH CONTRAST INDICATION / CLINICAL INFORMATION: MAIN. TECHNIQUE: Axial CT images were obtained through the abdomen and pelvis after 100 cc Omnipaque [address] scans at this location are performed using CT dose reduction for ALARA by means of automated exposure control. COMPARISON: CT abdomen pelvis 01/19/2020 FINDINGS: LOWER CHEST: No significant abnormality. HEPATOBILIARY: No significant abnormality. PANCREAS: Moderate edema/inflammatory change throughout the pancreas and peripancreatic fat. No focal fluid collection or definite evidence of pancreatic necrosis. Scattered punctate calcifications throughout the pancreas suggest underlying chronic pancreatitis. No evidence of splenic vein thrombosis or splenic artery aneurysm. No significant pancreatic ductal dilatation. Upper limits normal size reactive peripancreatic lymph nodes. SPLEEN: No significant abnormality. ADRENALS: No significant abnormality. GENITOURINARY: No significant abnormality. GASTROINTESTINAL/MESENTERY: No bowel obstruction. Appendix demonstrates no significant abnormality. There is moderate gaseous distention of the third portion of the duodenum with focal decompression as it transitions into the fourth portion. Fourth portion of duodenum demonstrates perienteric inflammatory change from adjacent pancreatic inflammatory process. No free air or significant free fluid. RETROPERITONEUM: No significant adenopathy. REPRODUCTIVE ORGANS: No significant abnormality. VASCULAR: No significant abnormality. SKELETAL SYSTEM: No significant abnormality. ADDITIONAL FINDINGS: None. IMPRESSION: 1. Acute on chronic pancreatitis without evidence of pancreatic necrosis or focal fluid collection. Mild-moderate peripancreatic inflammatory change extending to the adjacent viscera. 2. Additional findings as above. - Medical Decision Making 49 yo AA M pt with hx of recurrent nonalcoholic pancreatitis presents with complaints of abdominal pain, vomiting, and diarrhea x 4 days. He denies any other past medical hx, hematemesis/coffee-ground emesis, melena/hematochezia, or history of abdominal surgeries, fever/chills/sweats, chest pain, cough, or shortness of breath. He rates his current pain as a 8/10 in severity and describes it as stabbing and constant. Periumbilical tenderness with rebound noted on exam. Lipase elevated at 657. CT abdomen shows acute on chronic pancreatitis. White count is normal patient is afebrile nontachycardic. Discussed patient with hospitalist Dr. Meredith- will admit to hospital medicine. Critical care attestation.: If time is entered above; I have spent that time in minutes in the direct care of this critically ill patient, excluding procedure time. ED Disposition Clinical Impression: Acute on chronic pancreatitis Disposition: OP ADMIT IP TO THIS HOSP Is pt being admited?: Yes Condition: Stable Referrals: PRIMARY CARE, [Primary Care Provider] - 3-5 Days
[2020-04-04] MEDS ORDERED: HYDROmorphone 1 MG/1 ML INJ IV ONE (09:37)
[2020-04-04 09:49] LABS: Bilirubin,Urine NEG (Negative); Blood,Urine SM (Negative); Color,Urine Yellow (Yellow); Mucus,Urine FEW /HPF
--- NOTE | 2020-04-04 10:08 | Cat Scan Report ---
CT ABDOMEN AND PELVIS WITH CONTRAST INDICATION / CLINICAL INFORMATION: MAIN. TECHNIQUE: Axial CT images were obtained through the abdomen and pelvis after 100 cc Omnipaque [address] scans at this location are performed using CT dose reduction for ALARA by means of automated exposure control. COMPARISON: CT abdomen pelvis 01/19/2020 FINDINGS: LOWER CHEST: No significant abnormality. HEPATOBILIARY: No significant abnormality. PANCREAS: Moderate edema/inflammatory change throughout the pancreas and peripancreatic fat. No focal fluid collection or definite evidence of pancreatic necrosis. Scattered punctate calcifications thro ughout the pancreas suggest underlying chronic pancreatitis. No evidence of splenic vein thrombosis o r splenic artery aneurysm. No significant pancreatic ductal dilatation. Upper limits normal size reac tive peripancreatic lymph nodes. SPLEEN: No significant abnormality. ADRENALS: No significant abnormality. GENITOURINARY: No significant abnormality. GASTROINTESTINAL/MESENTERY: No bowel obstruction. Appendix demonstrates no significant abnormality. T here is moderate gaseous distention of the third portion of the duodenum with focal decompression as it transitions into the fourth portion. Fourth portion of duodenum demonstrates perienteric inflammat ory change from adjacent pancreatic inflammatory process. No free air or significant free fluid. RETROPERITONEUM: No significant adenopathy. REPRODUCTIVE ORGANS: No significant abnormality. VASCULAR: No significant abnormality. SKELETAL SYSTEM: No significant abnormality. ADDITIONAL FINDINGS: None. IMPRESSION: 1. Acute on chronic pancreatitis without evidence of pancreatic necrosis or focal fluid collection. M ild-moderate peripancreatic inflammatory change extending to the adjacent viscera. 2. Additional findings as above. Signer Name: Hansel Brambila MD Signed: 04/04/2020 10:04 AM Workstation Name: [id number]
[2020-04-04] MEDS ORDERED: KETOROLAC 30 MG/1 ML INJ IV ONE (10:44)
[2020-04-04] MEDS ORDERED: SODIUM CHLORIDE 0.9% 100 ML IVPB IV SCH (13:52)
[2020-04-04] MEDS ORDERED: NALOXONE 0.4 MG/1 ML INJ IV PRN (13:52)
[2020-04-04] MEDS ORDERED: ALUM-MAG HYDROXIDE-SIMETHICONE 200-200-20MG/5ML ORAL LIQD 30 ML PO PRN (13:52)
[2020-04-04] MEDS ORDERED: ACETAMINOPHEN 325 MG TAB PO PRN (13:52)
[2020-04-04] MEDS ORDERED: DEXTROSE 50% IN WATER (25GM) 50 ML SYRINGE IV PRN ×2 (13:52→14:17)
--- NOTE | 2020-04-04 14:31 | History and Physical Report ---
<LEONA MORINSofy - Last Filed: 04/04/20 19:00> History of Present Illness Date of examination: 04/04/20 History of present illness: This is a 49-year-old male with recurrent nonalcoholic pancreatitis for 15 years, chronic constipation, ? VSD/PFO, ? Stomach disease and nicotine abuse (1/2 PPD x36 years) who presents to the emergency department on 04/04 with complaints of severe abdominal pain, vomiting and diarrhea for 3 to 4 days. Patient states the pain started Thursday after he ate fast food and the pain described as 10/10 burning sensation to bilateral lower quadrants. During the same timeframe patient also experienced diarrhea with hematochezia and melena. Patient's emesis is described as yellow/brown. Patient states that he has a sensation of a pill sitting in his stomach and complains of "heartburn" for which she took Nataly-Voltaire for about 3 weeks and has found relief. Patient states that he took Pepcid OTC for years however has since stopped this medication. Patient denies any diagnosis of cholecystitis, cholelithiasis, hepatitis, or cirrhosis. Patient denies any alcohol abuse however of note from a provider on 04/03 indicates that the patient does have history of alcohol abuse. Patient will be admitted to the hospital service for IV analgesia, kept n.p.o., IV Protonix, serial H&H and a GI consult has been placed. Past History Past Medical History: other (CPP, pancreatitis, chronic constipation," born with stomach disease",? VSD/PFO) Social history: , lives with family, smoking, full code. denies: alcohol abuse, prescription drug abuse Medications and Allergies Allergies Allergy/AdvReac Type Severity Reaction Status Date / Time No Known Allergies Allergy Verified 03/12/13 23:13 Home Medications Medication Instructions Recorded Confirmed Last Taken Type Ondansetron [Zofran Odt] 4 mg PO Q8HR PRN #20 tab.rapdis 09/16/18 04/04/20 04/02/20 Rx Promethazine [Phenergan TAB] 25 mg PO Q6HR PRN #20 tab 09/16/18 04/04/20 04/02/20 Rx Famotidine [Pepcid] 20 mg PO BID #60 tablet 01/19/20 04/04/20 Unknown Rx Nithya Root [Nithya] 250 mg PO QID PRN #30 capsule 01/19/20 04/04/20 Unknown Rx Metoclopramide [Reglan] 10 mg PO QID PRN #30 tablet 01/19/20 04/04/20 04/02/20 Rx Cyclobenzaprine [Flexeril] 10 mg PO TID PRN 04/04/20 04/04/20 03/28/20 History Gabapentin [Neurontin] 400 mg PO Q8HR 04/04/20 04/04/20 03/28/20 History Active Meds: Active Medications Acetaminophen (Tylenol) 650 mg PO Q4H PRN PRN Reason: Pain MILD(1-3)/Fever >100.5/DAVIS Al Hydrox/Mg Hydrox/Simethicone (Alum-Mag Hydrox-Simeth [id number]/5ml) 30 ml PO Q4H PRN PRN Reason: Indigestion Dextrose (D50w (25gm) Syringe) 50 ml IV Q30MIN PRN; Protocol PRN Reason: Hypoglycemia Docusate Sodium (Colace) 100 mg PO BID [facility] Hydromorphone HCl (Dilaudid) 0.5 mg IV Q3H PRN PRN Reason: Pain , Severe (7-10) Insulin Human Regular (Humulin R) 0 unit SUB-Q Q6H [facility]; Protocol Morphine Sulfate (Morphine) 2 mg IV Q4H PRN PRN Reason: Pain, Moderate (4-6) Naloxone HCl (Naloxone) 0.1 mg IV Q2MIN PRN PRN Reason: Res Rate </= 8 or 02 SAT < 92% Ondansetron HCl (Zofran) 4 mg IV Q8H PRN PRN Reason: Nausea And Vomiting Pantoprazole Sodium (Protonix) 40 mg IV BID [facility] Senna (Senokot) 8.6 mg PO Q12HR [facility] Sodium Chloride (Sodium Chloride Flush Syringe 10 Ml) 10 ml IV BID [facility] Sodium Chloride (Sodium Chloride Flush Syringe 10 Ml) 10 ml IV PRN PRN PRN Reason: LINE FLUSH Sodium Chloride (Nacl 0.9%) 125 ml IV DIRECT [facility] Review of Systems Constitutional: anorexia, weakness, no weight loss, no weight gain, no fever, no chills, no sweats Ears, nose, mouth and throat: no ear pain, no ear discharge, no tinnitis, no decreased hearing, no nose pain, no nasal congestion, no nasal discharge, no sinus pressure, no sinus pain, no epistaxis, no bleeding gums, no hoarseness, no sore throat, no voice changes, no post-nasal drip, no headache, no neck fullness/pressure Cardiovascular: chest pain, no orthopnea, no palpitations, no rapid/irregular heart beat, no edema, no syncope, no lightheadedness, no shortness of breath, no dyspnea on exertion, no high blood pressure, no leg edema Respiratory: no cough, no cough with sputum, no excessive sputum, no hemoptysis, no shortness of breath, no dyspnea on exertion, no congestion, no wheezing, no pleurisy Gastrointestinal: abdominal pain, nausea, vomiting, diarrhea, constipation, melena, hematochezia, heartburn Rectal: no incontinence, no bleeding, no hemorrhoids Musculoskeletal: neck stiffness, no neck pain, no shooting arm pain, no arm numbness/tingling, no low back pain, no shooting leg pain, no leg numbness/tingling, no redness of joints, no morning stiffness, no muscle weakness Integumentary: no rash, no pruritis, no redness, no sores, no wounds, no growths, no darkening of skin Neurological: numbness, no head injury, no transient paralysis, no paralysis, no weakness, no parathesias, no tingling, no seizures, no syncope, no tremors, no ataxia, no lack of coordination, no vertigo, no headaches, no migraines, no convulsions, no change in speech, no change in mentation, no confusion, no sensory deficit, no double vision Psychiatric: no anxiety, no memory loss, no change in sleep habits, no sleep disturbances, no insomnia, no depression Endocrine: no cold intolerance, no heat intolerance, no polyphagia, no excessive thirst, no polydipsia, no excessive sweating, no flushing, no weight change, no increase in ring/shoe/hat size, no high blood sugars Hematologic/Lymphatic: no easy bruising, no easy bleeding Allergic/Immunologic: no urticaria, no allergic rhinitis Exam - Constitutional Vitals: Temp Pulse Resp BP Pulse Ox 98.4 F 68 18 158/80 99 04/04/20 09:01 04/04/20 10:21 04/04/20 11:12 04/04/20 10:21 04/04/20 10:21 General appearance: Present: no acute distress - EENT Eyes: Present: PERRL, EOM intact ENT: hearing intact, clear oral mucosa - Neck Neck: Present: supple, normal ROM - Respiratory Respiratory effort: normal Respiratory: bilateral: CTA - Cardiovascular Rhythm: regular Heart Sounds: Present: S1 & S2. Absent: systolic murmur, diastolic murmur - Extremities Extremities: no ischemia, pulses intact, pulses symmetrical, No edema, normal temperature, normal color, Full ROM Peripheral Pulses: within normal limits - Abdominal General gastrointestinal: Present: soft, tender, non-distended, normal bowel sounds - Integumentary Integumentary: Present: warm, dry - Musculoskeletal Musculoskeletal: strength equal bilaterally - Psychiatric Psychiatric: cooperative - Neurologic Neurologic: CNII-XII intact, no focal deficits, moves all extremities HEART Score - HEART Score Troponin: Troponin T < 0.010 ng/mL (0.00-0.029) 04/03/20 19:49 Results - Labs CBC & Chem 7: 04/03/20 19:49 04/03/20 19:49 Labs: Laboratory Last Values WBC 7.3 K/mm3 (4.5-11.0) 04/03/20 19:49 RBC 4.64 M/mm3 (3.65-5.03) 04/03/20 19:49 Hgb 14.3 gm/dl (11.8-15.2) 04/03/20 19:49 Hct 41.5 % (35.5-45.6) 04/03/20 19:49 MCV 89 fl (84-94) 04/03/20 19:49 MCH 31 pg (28-32) 04/03/20 19:49 MCHC 35 % (32-34) H 04/03/20 19:49 RDW 14.1 % (13.2-15.2) 04/03/20 19:49 Plt Count 185 K/mm3 (140-440) 04/03/20 19:49 Lymph % (Auto) 12.2 % (13.4-35.0) L 04/03/20 19:49 Marion % (Auto) 5.9 % (0.0-7.3) 04/03/20 19:49 Eos % (Auto) 0.2 % (0.0-4.3) 04/03/20 19:49 Baso % (Auto) 0.3 % (0.0-1.8) 04/03/20 19:49 Lymph # (Auto) 0.9 K/mm3 (1.2-5.4) L 04/03/20 19:49 Marion # (Auto) 0.4 K/mm3 (0.0-0.8) 04/03/20 19:49 Eos # (Auto) 0.0 K/mm3 (0.0-0.4) 04/03/20 19:49 Baso # (Auto) 0.0 K/mm3 (0.0-0.1) 04/03/20 19:49 Seg Neutrophils % 81.4 % (40.0-70.0) H 04/03/20 19:49 Seg Neutrophils # 5.9 K/mm3 (1.8-7.7) 04/03/20 19:49 PT 12.2 Sec. (12.2-14.9) 04/03/20 19:49 INR 0.90 (0.87-1.13) 04/03/20 19:49 APTT 26.1 Sec. (24.2-36.6) 04/03/20 19:49 Sodium 135 mmol/L (137-145) L 04/03/20 19:49 Potassium 4.0 mmol/L (3.6-5.0) 04/03/20 19:49 Chloride 97.6 mmol/L (98-107) L 04/03/20 19:49 Carbon Dioxide 26 mmol/L (22-30) 04/03/20 19:49 Anion Gap 15 mmol/L 04/03/20 19:49 BUN 3 mg/dL (9-20) L 04/03/20 19:49 Creatinine 0.8 mg/dL (0.8-1.3) 04/03/20 19:49 Estimated GFR > 60 ml/min 04/03/20 19:49 BUN/Creatinine Ratio 4 % 04/03/20 19:49 Glucose 115 mg/dL (75-100) H 04/03/20 19:49 Calcium 9.2 mg/dL (8.4-10.2) 04/03/20 19:49 Total Bilirubin 0.70 mg/dL (0.1-1.2) 04/03/20 19:49 AST 34 units/L (5-40) 04/03/20 19:49 ALT 30 units/L (7-56) 04/03/20 19:49 Alkaline Phosphatase 98 units/L (35-129) 04/03/20 19:49 Troponin T < 0.010 ng/mL (0.00-0.029) 04/03/20 19:49 Total Protein 7.0 g/dL (6.3-8.2) 04/03/20 19:49 Albumin 4.1 g/dL (3.9-5) 04/03/20 19:49 Albumin/Globulin Ratio 1.4 % 04/03/20 19:49 Lipase 657 units/L (13-60) H 04/03/20 19:49 Urine Color Yellow (Yellow) 04/04/20 08:55 Urine Turbidity Clear (Clear) 04/04/20 08:55 Urine pH 7.0 (5.0-7.0) 04/04/20 08:55 Ur Specific Spearman 1.018 (1.003-1.030) 04/04/20 08:55 Urine Protein 30 mg/dl mg/dL (Negative) 04/04/20 08:55 Urine Glucose (UA) Neg mg/dL (Negative) 04/04/20 08:55 Urine Ketones 20 mg/dL (Negative) 04/04/20 08:55 Urine Blood Sm (Negative) 04/04/20 08:55 Urine Nitrite Neg (Negative) 04/04/20 08:55 Urine Bilirubin Neg (Negative) 04/04/20 08:55 Urine Urobilinogen 2.0 mg/dL (<2.0) 04/04/20 08:55 Ur Leukocyte Esterase Neg (Negative) 04/04/20 08:55 Urine WBC (Auto) 1.0 /HPF (0.0-6.0) 04/04/20 08:55 Urine RBC (Auto) 8.0 /HPF (0.0-6.0) 04/04/20 08:55 U Epithel Cells (Auto) < 1.0 /HPF (0-13.0) 04/04/20 08:55 Urine Mucus Few /HPF 04/04/20 08:55 - Imaging and Cardiology Chest x-ray: report reviewed CT scan - abdomen: report reviewed - Diagnostic Impressions Diagnostic Impressions: 04/04 CT abdomen/pelvis without contrast acute on chronic pancreatitis without evidence of pancreatic necrosis or focal fluid collection, mild to moderate peripancreatic inflammatory changes extending to the adjacent viscera 04/03 abdominal x-ray with chest x-ray shows no acute cardiopulmonary findings and nonobstructive bowel gas pattern 02/18 CT abdomen/pelvis shows chronic pancreatitis with mild hepatic steatosis Hinson/IV: IV Catheter Type [Right INT / Saline Lock Forearm] Assessment and Plan Assessment and plan: - Patient Problems (1) GIB (gastrointestinal bleeding) Status: Acute Plan to address problem: Patient states he has had with hematochezia and melena Serial H&H GI consulted IV Protonix N.p.o. for now, IVF (2) Acute on chronic pancreatitis Status: Acute Plan to address problem: Patient presented with a lipase of 657, and a 3 to 4-day history of severe abdominal pain, diarrhea, vomiting N.p.o. for now MIVF IV analgesia Trend lipase (3) Gastroenteritis Status: Acute Plan to address problem: N.p.o. for now, IVF IV antiemetics and analgesia Supportive care (4) Hyponatremia Status: Acute Plan to address problem: Presented with a sodium 135 Mild reduction, neurochecks Trend BMP MIVF (5) Hypochloremia Status: Acute Plan to address problem: Presented with chloride 97.6 IVF Trend BMP (6) Tobacco abuse disorder Status: Acute Plan to address problem: Smoking cessation counseling (7) DVT prophylaxis Status: Acute Plan to address problem: SCDs bilateral extremities VTE prophylaxis?: Mechanical Contraindication Mechanical VTE Prophylaxis: Contraindicated Reason for no VTE Prophylaxis: Bleeding Plan of care discussed with patient/family: Yes <EDMOND MEDINA R - Last Filed: 04/05/20 16:46> History of Present Illness Date of admission: 04/05/20 09:28 Chief complaint: N/V/diarrhea History of present illness: I saw and evaluated the patient. I agree with the findings and the plan of care as documented in the Nurse Practitioner's~note, with the following corrections and additions. Start clear liquid diet as tolerated, follow GI recommendation. Medications and Allergies Active Meds: Active Medications Acetaminophen (Tylenol) 650 mg PO Q4H PRN PRN Reason: Pain MILD(1-3)/Fever >100.5/DAVIS Al Hydrox/Mg Hydrox/Simethicone (Alum-Mag Hydrox-Simeth [phone]/5ml) 30 ml PO Q4H PRN PRN Reason: Indigestion Dextrose (D50w (25gm) Syringe) 50 ml IV Q30MIN PRN; Protocol PRN Reason: Hypoglycemia Docusate Sodium (Colace) 100 mg PO BID [facility] Last Admin: 04/05/20 09:02 Dose: 100 mg Documented by: Hydromorphone HCl (Dilaudid) 0.5 mg IV Q3H PRN PRN Reason: Pain , Severe (7-10) Last Admin: 04/04/20 23:54 Dose: 0.5 mg Documented by: Insulin Human Regular (Humulin R) 0 unit SUB-Q Q6H [facility]; Protocol Last Admin: 04/05/20 08:00 Dose: Not Given Documented by: Morphine Sulfate (Morphine) 2 mg IV Q4H PRN PRN Reason: Pain, Moderate (4-6) Last Admin: 04/05/20 16:39 Dose: 2 mg Documented by: Naloxone HCl (Naloxone) 0.1 mg IV Q2MIN PRN PRN Reason: Res Rate </= 8 or 02 SAT < 92% Ondansetron HCl (Zofran) 4 mg IV Q8H PRN PRN Reason: Nausea And Vomiting Last Admin: 04/04/20 15:11 Dose: 4 mg Documented by: Pantoprazole Sodium (Protonix) 40 mg IV BID [facility] Last Admin: 04/05/20 09:02 Dose: 40 mg Documented by: Polyethylene Glycol/Electrolytes (Golytely) 4,000 ml PO ONCE ONE Stop: 04/05/20 18:01 Senna (Senokot) 8.6 mg PO Q12HR [facility] Last Admin: 04/05/20 09:02 Dose: 8.6 mg Documented by: Sodium Chloride (Sodium Chloride Flush Syringe 10 Ml) 10 ml IV BID [facility] Last Admin: 04/05/20 09:02 Dose: 10 ml Documented by: Sodium Chloride (Sodium Chloride Flush Syringe 10 Ml) 10 ml IV PRN PRN PRN Reason: LINE FLUSH Sodium Chloride (Nacl 0.9%) 125 ml IV DIRECT [facility] Exam - Constitutional Vitals: Temp Pulse Resp BP Pulse Ox 97.6 F 58 L 22 136/77 99 04/05/20 12:10 04/05/20 12:10 04/05/20 12:10 04/05/20 12:10 04/05/20 12:10 HEART Score - HEART Score Troponin: Troponin T < 0.010 ng/mL (0.00-0.029) 04/03/20 19:49 Results - Labs CBC & Chem 7: 04/03/20 19:49 04/05/20 08:56 Labs: Laboratory Last Values WBC 7.3 K/mm3 (4.5-11.0) 04/03/20 19:49 RBC 4.64 M/mm3 (3.65-5.03) 04/03/20 19:49 Hgb 14.3 gm/dl (11.8-15.2) 04/03/20 19:49 Hct 41.5 % (35.5-45.6) 04/03/20 19:49 MCV 89 fl (84-94) 04/03/20 19:49 MCH 31 pg (28-32) 04/03/20 19:49 MCHC 35 % (32-34) H 04/03/20 19:49 RDW 14.1 % (13.2-15.2) 04/03/20 19:49 Plt Count 185 K/mm3 (140-440) 04/03/20 19:49 Lymph % (Auto) 12.2 % (13.4-35.0) L 04/03/20 19:49 Marion % (Auto) 5.9 % (0.0-7.3) 04/03/20 19:49 Eos % (Auto) 0.2 % (0.0-4.3) 04/03/20 19:49 Baso % (Auto) 0.3 % (0.0-1.8) 04/03/20 19:49 Lymph # (Auto) 0.9 K/mm3 (1.2-5.4) L 04/03/20 19:49 Marion # (Auto) 0.4 K/mm3 (0.0-0.8) 04/03/20 19:49 Eos # (Auto) 0.0 K/mm3 (0.0-0.4) 04/03/20 19:49 Baso # (Auto) 0.0 K/mm3 (0.0-0.1) 04/03/20 19:49 Seg Neutrophils % 81.4 % (40.0-70.0) H 04/03/20 19:49 Seg Neutrophils # 5.9 K/mm3 (1.8-7.7) 04/03/20 19:49 PT 12.2 Sec. (12.2-14.9) 04/03/20 19:49 INR 0.90 (0.87-1.13) 04/03/20 19:49 APTT 26.1 Sec. (24.2-36.6) 04/03/20 19:49 Sodium 133 mmol/L (137-145) L 04/05/20 08:56 Potassium 3.5 mmol/L (3.6-5.0) L 04/05/20 08:56 Chloride 98.0 mmol/L (98-107) 04/05/20 08:56 Carbon Dioxide 22 mmol/L (22-30) 04/05/20 08:56 Anion Gap 17 mmol/L 04/05/20 08:56 BUN 2 mg/dL (9-20) L 04/05/20 08:56 Creatinine 0.9 mg/dL (0.8-1.3) 04/05/20 08:56 Estimated GFR > 60 ml/min 04/05/20 08:56 BUN/Creatinine Ratio 2 % 04/05/20 08:56 Glucose 194 mg/dL (75-100) H 04/05/20 08:56 POC Glucose 90 mg/dL (70-105) 04/04/20 23:11 Calcium 8.6 mg/dL (8.4-10.2) 04/05/20 08:56 Total Bilirubin 0.70 mg/dL (0.1-1.2) 04/03/20 19:49 AST 34 units/L (5-40) 04/03/20 19:49 ALT 30 units/L (7-56) 04/03/20 19:49 Alkaline Phosphatase 98 units/L (35-129) 04/03/20 19:49 Troponin T < 0.010 ng/mL (0.00-0.029) 04/03/20 19:49 Total Protein 7.0 g/dL (6.3-8.2) 04/03/20 19:49 Albumin 4.1 g/dL (3.9-5) 04/03/20 19:49 Albumin/Globulin Ratio 1.4 % 04/03/20 19:49 Lipase 657 units/L (13-60) H 04/03/20 19:49 Urine Color Yellow (Yellow) 04/04/20 08:55 Urine Turbidity Clear (Clear) 04/04/20 08:55 Urine pH 7.0 (5.0-7.0) 04/04/20 08:55 Ur Specific Spearman 1.018 (1.003-1.030) 04/04/20 08:55 Urine Protein 30 mg/dl mg/dL (Negative) 04/04/20 08:55 Urine Glucose (UA) Neg mg/dL (Negative) 04/04/20 08:55 Urine Ketones 20 mg/dL (Negative) 04/04/20 08:55 Urine Blood Sm (Negative) 04/04/20 08:55 Urine Nitrite Neg (Negative) 04/04/20 08:55 Urine Bilirubin Neg (Negative) 04/04/20 08:55 Urine Urobilinogen 2.0 mg/dL (<2.0) 04/04/20 08:55 Ur Leukocyte Esterase Neg (Negative) 04/04/20 08:55 Urine WBC (Auto) 1.0 /HPF (0.0-6.0) 04/04/20 08:55 Urine RBC (Auto) 8.0 /HPF (0.0-6.0) 04/04/20 08:55 U Epithel Cells (Auto) < 1.0 /HPF (0-13.0) 04/04/20 08:55 Urine Mucus Few /HPF 04/04/20 08:55 Hinson/IV: Voiding Method Toilet IV Catheter Type [Right INT / Saline Lock Forearm]
[2020-04-04] MEDS ORDERED: PANTOPRAZOLE 40 MG INJ IV ONE (14:55)
[2020-04-04] MEDS: INSULIN REGULAR, HUMAN 100 UNIT/ML 3ML VIAL SUB-Q SCH ×2 (15:03→21:03)
[2020-04-04] MEDS: PANTOPRAZOLE 40 MG INJ IV SCH ×2 (15:04→21:02)
[2020-04-04] MEDS ORDERED: ONDANSETRON 4 MG/2 ML INJ ONE (15:05)
[2020-04-04] MEDS ORDERED: HYDROmorphone 1 MG/1 ML INJ ONE (15:06)
[2020-04-04] MEDS: HYDROmorphone 1 MG/1 ML INJ IV PRN ×2 (15:11→23:54)
[2020-04-04] MEDS: ONDANSETRON 4 MG/2 ML INJ IV PRN (15:11)
[2020-04-04] MEDS: MORPHINE 2 MG/1 ML INJ IV PRN ×2 (17:21→21:01)
[2020-04-04] MEDS: DOCUSATE SODIUM 100 MG CAP PO SCH (21:02)
[2020-04-04] MEDS: SENNOSIDES 8.6 MG TAB PO SCH (21:03)
[2020-04-05] MEDS: INSULIN REGULAR, HUMAN 100 UNIT/ML 3ML VIAL SUB-Q SCH ×3 (03:56→14:00)
[2020-04-05] MEDS: MORPHINE 2 MG/1 ML INJ IV PRN ×4 (08:36→20:39)
[2020-04-05] MEDS: PANTOPRAZOLE 40 MG INJ IV SCH ×2 (09:02→21:28)
[2020-04-05] MEDS: SENNOSIDES 8.6 MG TAB PO SCH ×2 (09:02→21:28)
[2020-04-05] MEDS: DOCUSATE SODIUM 100 MG CAP PO SCH ×2 (09:02→21:28)
[2020-04-05 09:41] LABS: BUN/Creatinine Ratio 2; Blood Urea Nitrogen 2 mg/dL (9-20); Calcium 8.6 mg/dL (8.4-10.2); Hemolysis Index 14
--- NOTE | 2020-04-05 14:34 | Event Note ---
Date: 04/05/20 Full consult dictated - probable mild pancreatitis - rectal bleeding w/ loose stool along w/ ged and dysphagia - EGD/colonoscopy in am
[2020-04-05] MEDS: ONDANSETRON 4 MG/2 ML INJ IV PRN (17:19)
[2020-04-05] MEDS ORDERED: SODIUM CHLORIDE 0.9% 1000 ML 1,000 ML IV SCH (17:30)
--- NOTE | 2020-04-05 17:58 | Progress Note ---
<PATIENCELEONA SnehaSofy - Last Filed: 04/05/20 17:58> Assessment and Plan Assessment and plan: - Patient Problems (1) GIB (gastrointestinal bleeding) Status: Acute Plan to address problem: Patient states he has had with hematochezia and melena Serial H&H GI consulted: Plans for an EGD/colonoscopy on 04/06, n.p.o. after midnight IV Protonix CLD (2) Acute on chronic pancreatitis Status: Acute Plan to address problem: Patient presented with a lipase of 657, and a 3 to 4-day history of severe abdominal pain, diarrhea, vomiting CLD IV analgesia Trend lipase GI consulted: Plans for an EGD/colonoscopy on 04/06, n.p.o. after midnight (3) Gastroenteritis Status: Acute Plan to address problem: CLD IV antiemetics and analgesia Supportive care (4) Hyponatremia Status: Acute Plan to address problem: Presented with a sodium 135, 04/05 133 Mild reduction, neurochecks Trend BMP MIVF (5) Hypokalemia Status: Acute Plan to address problem: 04/05 potassium 3.5 Repleted with p.o. potassium Trend BMP Repeat as needed (6) Hypochloremia Status: Acute Plan to address problem: Presented with chloride 97.6, 03/2998 IVF Trend BMP (7) Tobacco abuse disorder Status: Acute Plan to address problem: Smoking cessation counseling (8) DVT prophylaxis Status: Acute Plan to address problem: SCDs bilateral extremities History Interval history: This is a 49-year-old male with recurrent nonalcoholic pancreatitis for 15 years, chronic constipation, ? VSD/PFO, ? Stomach disease and nicotine abuse (1/2 PPD x36 years) who presents to the emergency department on 04/04 with complaints of severe abdominal pain, vomiting and diarrhea for 3 to 4 days. Patient states the pain started Thursday after he ate fast food and the pain descr ibed as 10/10 burning sensation to bilateral lower quadrants. During the same timeframe patient also experienced diarrhea with hematochezia and melena. Patient will be admitted to the hospital service for IV analgesia, kept n.p.o., IV Protonix, serial H&H and a GI consult has been placed.At the time of my examination this morning patient still complains of diffuse abdominal pain and inability to tolerate his clear liquid diet. However per the RN he consumed 100% of his tray and asked for additional intake. GI has seen the patient and plans for a EGD/colonoscopy in the a.m., patient is n.p.o. after midnight. Patient also has not had any more melena or hematochezia Hospitalist Physical - Constitutional Vitals: Temp Pulse Resp BP Pulse Ox 97.6 F 58 L 22 136/77 99 04/05/20 12:10 04/05/20 12:10 04/05/20 12:10 04/05/20 12:10 04/05/20 12:10 General appearance: Present: no acute distress - EENT Eyes: Present: PERRL, EOM intact ENT: hearing intact, clear oral mucosa, dentition normal - Neck Neck: Present: supple - Respiratory Respiratory effort: normal Respiratory: bilateral: CTA - Cardiovascular Rhythm: regular Heart Sounds: Present: S1 & S2. Absent: systolic murmur, diastolic murmur - Extremities Extremities: no ischemia, pulses intact, pulses symmetrical, No edema, normal temperature, normal color, Full ROM Peripheral Pulses: within normal limits - Abdominal General gastrointestinal: soft, non-tender, tender, non-distended, normal bowel sounds Localized gastrointestinal: tender: RLQ, LLQ - Integumentary Integumentary: Present: clear, warm, dry - Psychiatric Psychiatric: appropriate mood/affect, cooperative - Neurologic Neurologic: CNII-XII intact, no focal deficits, moves all extremities - Allied Health Allied health notes reviewed: nursing HEART Score - HEART Score Troponin: Troponin T < 0.010 ng/mL (0.00-0.029) 04/03/20 19:49 Results - Labs CBC & Chem 7: 04/03/20 19:49 04/05/20 08:56 Labs: Laboratory Last Values WBC 7.3 K/mm3 (4.5-11.0) 04/03/20 19:49 RBC 4.64 M/mm3 (3.65-5.03) 04/03/20 19:49 Hgb 14.3 gm/dl (11.8-15.2) 04/03/20 19:49 Hct 41.5 % (35.5-45.6) 04/03/20 19:49 MCV 89 fl (84-94) 04/03/20 19:49 MCH 31 pg (28-32) 04/03/20 19:49 MCHC 35 % (32-34) H 04/03/20 19:49 RDW 14.1 % (13.2-15.2) 04/03/20 19:49 Plt Count 185 K/mm3 (140-440) 04/03/20 19:49 Lymph % (Auto) 12.2 % (13.4-35.0) L 04/03/20 19:49 [place] % (Auto) 5.9 % (0.0-7.3) 04/03/20 19:49 Eos % (Auto) 0.2 % (0.0-4.3) 04/03/20 19:49 Baso % (Auto) 0.3 % (0.0-1.8) 04/03/20 19:49 Lymph # (Auto) 0.9 K/mm3 (1.2-5.4) L 04/03/20 19:49 [place] # (Auto) 0.4 K/mm3 (0.0-0.8) 04/03/20 19:49 Eos # (Auto) 0.0 K/mm3 (0.0-0.4) 04/03/20 19:49 Baso # (Auto) 0.0 K/mm3 (0.0-0.1) 04/03/20 19:49 Seg Neutrophils % 81.4 % (40.0-70.0) H 04/03/20 19:49 Seg Neutrophils # 5.9 K/mm3 (1.8-7.7) 04/03/20 19:49 PT 12.2 Sec. (12.2-14.9) 04/03/20 19:49 INR 0.90 (0.87-1.13) 04/03/20 19:49 APTT 26.1 Sec. (24.2-36.6) 04/03/20 19:49 Sodium 133 mmol/L (137-145) L 04/05/20 08:56 Potassium 3.5 mmol/L (3.6-5.0) L 04/05/20 08:56 Chloride 98.0 mmol/L (98-107) 04/05/20 08:56 Carbon Dioxide 22 mmol/L (22-30) 04/05/20 08:56 Anion Gap 17 mmol/L 04/05/20 08:56 BUN 2 mg/dL (9-20) L 04/05/20 08:56 Creatinine 0.9 mg/dL (0.8-1.3) 04/05/20 08:56 Estimated GFR > 60 ml/min 04/05/20 08:56 BUN/Creatinine Ratio 2 % 04/05/20 08:56 Glucose 194 mg/dL (75-100) H 04/05/20 08:56 POC Glucose 90 mg/dL (70-105) 04/04/20 23:11 Calcium 8.6 mg/dL (8.4-10.2) 04/05/20 08:56 Total Bilirubin 0.70 mg/dL (0.1-1.2) 04/03/20 19:49 AST 34 units/L (5-40) 04/03/20 19:49 ALT 30 units/L (7-56) 04/03/20 19:49 Alkaline Phosphatase 98 units/L (35-129) 04/03/20 19:49 Troponin T < 0.010 ng/mL (0.00-0.029) 04/03/20 19:49 Total Protein 7.0 g/dL (6.3-8.2) 04/03/20 19:49 Albumin 4.1 g/dL (3.9-5) 04/03/20 19:49 Albumin/Globulin Ratio 1.4 % 04/03/20 19:49 Lipase 657 units/L (13-60) H 04/03/20 19:49 Urine Color Yellow (Yellow) 04/04/20 08:55 Urine Turbidity Clear (Clear) 04/04/20 08:55 Urine pH 7.0 (5.0-7.0) 04/04/20 08:55 Ur Specific [place] 1.018 (1.003-1.030) 04/04/20 08:55 Urine Protein 30 mg/dl mg/dL (Negative) 04/04/20 08:55 Urine Glucose (UA) Neg mg/dL (Negative) 04/04/20 08:55 Urine Ketones 20 mg/dL (Negative) 04/04/20 08:55 Urine Blood Sm (Negative) 04/04/20 08:55 Urine Nitrite Neg (Negative) 04/04/20 08:55 Urine Bilirubin Neg (Negative) 04/04/20 08:55 Urine Urobilinogen 2.0 mg/dL (<2.0) 04/04/20 08:55 Ur Leukocyte Esterase Neg (Negative) 04/04/20 08:55 Urine WBC (Auto) 1.0 /HPF (0.0-6.0) 04/04/20 08:55 Urine RBC (Auto) 8.0 /HPF (0.0-6.0) 04/04/20 08:55 U Epithel Cells (Auto) < 1.0 /HPF (0-13.0) 04/04/20 08:55 Urine Mucus Few /HPF 04/04/20 08:55 Hinson/IV: Voiding Method Toilet IV Catheter Type [Right INT / Saline Lock Forearm] Active Medications - Current Medications Current Medications: Generic Name Dose Route Start Last Admin Trade Name Freq PRN Reason Stop Dose Admin Acetaminophen 650 mg 04/04/20 13:52 Tylenol PO Q4H PRN Pain MILD(1-3)/Fever >100.5/DAVIS Al Hydrox/Mg Hydrox/Simethicone 30 ml 04/04/20 13:52 Alum-Mag Hydrox-Simeth 188-977-90fm/5ml PO Q4H PRN Indigestion Dextrose 50 ml 04/04/20 13:52 D50w (25gm) Syringe IV Q30MIN PRN Hypoglycemia Protocol Docusate Sodium 100 mg 04/04/20 22:00 04/05/20 09:02 Colace PO 100 mg BID BRENT Administration Hydromorphone HCl 0.5 mg 04/04/20 13:52 04/04/20 23:54 Dilaudid IV 0.5 mg Q3H PRN Administration Pain , Severe (7-10) Sodium Chloride 1,000 mls @ 125 mls/hr 04/05/20 17:30 Nacl 0.9% 1000 Ml IV DIRECT [facility] Insulin Human Regular 0 unit 04/04/20 14:00 04/05/20 08:00 Humulin R SUB-Q Not Given Q6H [facility] Protocol Morphine Sulfate 2 mg 04/04/20 13:52 04/05/20 16:39 Morphine IV 2 mg Q4H PRN Administration Pain, Moderate (4-6) Naloxone HCl 0.1 mg 04/04/20 13:52 Naloxone IV Q2MIN PRN Res Rate </= 8 or 02 SAT < 92% Ondansetron HCl 4 mg 10/28/20 13:52 04/05/20 17:19 Zofran IV 4 mg Q8H PRN Administration Nausea And Vomiting Pantoprazole Sodium 40 mg 04/04/20 14:00 04/05/20 09:02 Protonix IV 40 mg BID BRENT Administration Polyethylene Glycol/Electrolytes 4,000 ml 04/05/20 18:00 04/05/20 17:22 Golytely PO 04/05/20 18:01 4,000 ml ONCE ONE Administration Senna 8.6 mg 04/04/20 22:00 04/05/20 09:02 Senokot PO 8.6 mg Q12HR BRENT Administration Sodium Chloride 10 ml 04/04/20 22:00 04/05/20 09:02 Sodium Chloride Flush Syringe 10 Ml IV 10 ml BID BRENT Administration Sodium Chloride 10 ml 04/04/20 13:52 Sodium Chloride Flush Syringe 10 Ml IV PRN PRN LINE FLUSH Sodium Chloride 125 ml 04/04/20 13:52 Nacl 0.9% IV DIRECT BRENT <EDMOND MEDINA R - Last Filed: 04/06/20 10:39> Assessment and Plan Assessment and plan: I saw and evaluated the patient. I agree with the findings and the plan of care as documented in the Nurse Practitioner's~note. Hospitalist Physical - Constitutional Vitals: Temp Pulse Resp BP Pulse Ox 98.3 F 64 17 133/77 96 04/06/20 05:13 04/06/20 05:13 04/06/20 05:16 04/06/20 05:13 04/06/20 05:13 HEART Score - HEART Score Troponin: Troponin T < 0.010 ng/mL (0.00-0.029) 04/03/20 19:49 Results - Labs CBC & Chem 7: 04/03/20 19:49 04/06/20 04:30 Labs: Laboratory Last Values WBC 7.3 K/mm3 (4.5-11.0) 04/03/20 19:49 RBC 4.64 M/mm3 (3.65-5.03) 04/03/20 19:49 Hgb 14.3 gm/dl (11.8-15.2) 04/03/20 19:49 Hct 41.5 % (35.5-45.6) 04/03/20 19:49 MCV 89 fl (84-94) 04/03/20 19:49 MCH 31 pg (28-32) 04/03/20 19:49 MCHC 35 % (32-34) H 04/03/20 19:49 RDW 14.1 % (13.2-15.2) 04/03/20 19:49 Plt Count 185 K/mm3 (140-440) 04/03/20 19:49 Lymph % (Auto) 12.2 % (13.4-35.0) L 04/03/20 19:49 [place] % (Auto) 5.9 % (0.0-7.3) 04/03/20 19:49 Eos % (Auto) 0.2 % (0.0-4.3) 04/03/20 19:49 Baso % (Auto) 0.3 % (0.0-1.8) 04/03/20 19:49 Lymph # (Auto) 0.9 K/mm3 (1.2-5.4) L 04/03/20 19:49 [place] # (Auto) 0.4 K/mm3 (0.0-0.8) 04/03/20 19:49 Eos # (Auto) 0.0 K/mm3 (0.0-0.4) 04/03/20 19:49 Baso # (Auto) 0.0 K/mm3 (0.0-0.1) 04/03/20 19:49 Seg Neutrophils % 81.4 % (40.0-70.0) H 04/03/20 19:49 Seg Neutrophils # 5.9 K/mm3 (1.8-7.7) 04/03/20 19:49 PT 12.2 Sec. (12.2-14.9) 04/03/20 19:49 INR 0.90 (0.87-1.13) 04/03/20 19:49 APTT 26.1 Sec. (24.2-36.6) 04/03/20 19:49 Sodium 135 mmol/L (137-145) L 04/06/20 04:30 Potassium 3.9 mmol/L (3.6-5.0) 04/06/20 04:30 Chloride 99.3 mmol/L (98-107) 04/06/20 04:30 Carbon Dioxide 25 mmol/L (22-30) 04/06/20 04:30 Anion Gap 15 mmol/L 04/06/20 04:30 BUN 1 mg/dL (9-20) L 04/06/20 04:30 Creatinine 0.8 mg/dL (0.8-1.3) 04/06/20 04:30 Estimated GFR > 60 ml/min 04/06/20 04:30 BUN/Creatinine Ratio 1 % 04/06/20 04:30 Glucose 93 mg/dL (75-100) 04/06/20 04:30 POC Glucose 90 mg/dL (70-105) 04/06/20 05:27 Calcium 8.7 mg/dL (8.4-10.2) 04/06/20 04:30 Total Bilirubin 0.70 mg/dL (0.1-1.2) 04/03/20 19:49 AST 34 units/L (5-40) 04/03/20 19:49 ALT 30 units/L (7-56) 04/03/20 19:49 Alkaline Phosphatase 98 units/L (35-129) 04/03/20 19:49 Troponin T < 0.010 ng/mL (0.00-0.029) 04/03/20 19:49 Total Protein 7.0 g/dL (6.3-8.2) 04/03/20 19:49 Albumin 4.1 g/dL (3.9-5) 04/03/20 19:49 Albumin/Globulin Ratio 1.4 % 04/03/20 19:49 Lipase 657 units/L (13-60) H 04/03/20 19:49 Urine Color Yellow (Yellow) 04/04/20 08:55 Urine Turbidity Clear (Clear) 04/04/20 08:55 Urine pH 7.0 (5.0-7.0) 04/04/20 08:55 Ur Specific [place] 1.018 (1.003-1.030) 04/04/20 08:55 Urine Protein 30 mg/dl mg/dL (Negative) 04/04/20 08:55 Urine Glucose (UA) Neg mg/dL (Negative) 04/04/20 08:55 Urine Ketones 20 mg/dL (Negative) 04/04/20 08:55 Urine Blood Sm (Negative) 04/04/20 08:55 Urine Nitrite Neg (Negative) 04/04/20 08:55 Urine Bilirubin Neg (Negative) 04/04/20 08:55 Urine Urobilinogen 2.0 mg/dL (<2.0) 04/04/20 08:55 Ur Leukocyte Esterase Neg (Negative) 04/04/20 08:55 Urine WBC (Auto) 1.0 /HPF (0.0-6.0) 04/04/20 08:55 Urine RBC (Auto) 8.0 /HPF (0.0-6.0) 04/04/20 08:55 U Epithel Cells (Auto) < 1.0 /HPF (0-13.0) 04/04/20 08:55 Urine Mucus Few /HPF 04/04/20 08:55 Hinson/IV: Voiding Method Toilet IV Catheter Type [Left Forearm Peripheral IV ] IV Catheter Type [Right INT / Saline Lock Forearm] Active Medications - Current Medications Current Medications: Generic Name Dose Route Start Last Admin Trade Name Freq PRN Reason Stop Dose Admin Acetaminophen 650 mg 04/04/20 13:52 Tylenol PO Q4H PRN Pain MILD(1-3)/Fever >100.5/DAVIS Al Hydrox/Mg Hydrox/Simethicone 30 ml 04/04/20 13:52 Alum-Mag Hydrox-Simeth [phone]/5ml PO Q4H PRN Indigestion Dextrose 50 ml 04/04/20 13:52 D50w (25gm) Syringe IV Q30MIN PRN Hypoglycemia Protocol Docusate Sodium 100 mg 04/04/20 22:00 04/05/20 21:28 Colace PO 100 mg BID BRENT Administration Hydromorphone HCl 0.5 mg 04/04/20 13:52 04/06/20 04:46 Dilaudid IV 0.5 mg Q3H PRN Administration Pain , Severe (7-10) Sodium Chloride 1,000 mls @ 50 mls/hr 04/06/20 09:30 Nacl 0.9% 1000 Ml IV DIRECT [facility] Insulin Human Regular 0 unit 04/04/20 14:00 04/06/20 08:00 Humulin R SUB-Q Not Given Q6H [facility] Protocol Morphine Sulfate 2 mg 04/04/20 13:52 04/06/20 08:11 Morphine IV 2 mg Q4H PRN Administration Pain, Moderate (4-6) Naloxone HCl 0.1 mg 04/04/20 13:52 Naloxone IV Q2MIN PRN Res Rate </= 8 or 02 SAT < 92% Ondansetron HCl 4 mg 04/04/20 13:52 04/05/20 17:19 Zofran IV 4 mg Q8H PRN Administration Nausea And Vomiting Pantoprazole Sodium 40 mg 04/04/20 14:00 04/05/20 21:28 Protonix IV 40 mg BID BRENT Administration Senna 8.6 mg 04/04/20 22:00 04/05/20 21:28 Senokot PO 8.6 mg Q12HR BRENT Administration Sodium Chloride 10 ml 04/04/20 22:00 04/05/20 21:29 Sodium Chloride Flush Syringe 10 Ml IV 10 ml BID BRENT Administration Sodium Chloride 10 ml 04/04/20 13:52 Sodium Chloride Flush Syringe 10 Ml IV PRN PRN LINE FLUSH Sodium Chloride 125 ml 04/04/20 13:52 Nacl 0.9% IV DIRECT BRENT
[2020-04-05] MEDS ORDERED: POLYETHYLENE GLYCOL/ELECT SOLN 4000 ML PO ONE (18:00)
[2020-04-05] MEDS ORDERED: POTASSIUM CHLORIDE ER 20 MEQ TAB PO ONE (18:03)
--- NOTE | 2020-04-05 19:33 | Consultation ---
REFERRING PHYSICIAN: Dr. Kristie Meredith. INDICATIONS: 1. Abdominal pain. 2. Rectal bleeding. 3. GERD. HISTORY OF PRESENT ILLNESS: The patient is a 49-year-old black male being seen by GI for upper and lower GI symptoms. The patient reports a chronic history of nonalcoholic pancreatitis and chronic constipation. The patient also reports a history of nicotine abuse. The patient reports a history of alcohol abuse, though notes from primary care seem to suggest as such. The patient reports recent symptoms of loose stools or rectal bleeding, reported black stools. He also reports some reflux and indigestion as well as some mild dysphagia. The patient reports after having a meal he started having some mid abdominal pain. The patient subsequently came to the hospital, where CT scan and labs suggest pancreatitis, which seemed to be resolving. The patient has now been seen by GI. PAST MEDICAL HISTORY: 1. Chronic pancreatitis. 2. Chronic constipation. MEDICATIONS: Reviewed and updated in chart. ALLERGIES: No known drug allergies. SOCIAL HISTORY: Denies alcohol abuse, though reported as such in the past. Positive smoker. FAMILY HISTORY: Negative for colon cancer, IBD, or liver disease. REVIEW OF SYSTEMS: GENERAL: Reports some weakness. HEENT: No visual complaints or tinnitus. PULMONARY: No shortness of breath. No cough. No chest pain. GASTROINTESTINAL: Reports rectal bleeding, GERD and dysphagia. All points of 13-point review of systems otherwise negative. PHYSICAL EXAMINATION: VITAL SIGNS: Temperature 97.6, pulse 60, respirations 20, blood pressure 136/77. GENERAL: Fairly nourished with no acute distress. HEENT: Pupils equal, round and reactive. PULMONARY: Clear. CARDIOVASCULAR: Regular rate and rhythm. Normal S1, S2. ABDOMEN: Palpable soft. SKIN: No obvious rashes. LABORATORY DATA: Labs pertinent for a white count of 7.3, hemoglobin and hematocrit of 14.3 and 41.5, platelet count of 185. Coags within normal limits. Chem-7 within normal limits. LFTs within normal limits. CT scan showed signs of acute on chronic pancreatitis, but otherwise benign. It should be noted that labs also showed a increased lipase. ASSESSMENT: A 49-year-old male with a question of a history of alcohol abuse in the past with a history of chronic pancreatitis, now presents with recent rectal bleeding with reported bright red and black stools, also reported gastroesophageal reflux disease with mild dysphagia, now more recently abdominal pain with labs and CT scan raised the possibility of pancreatitis. The patient reports those symptoms are getting better, but he is concerned for those ongoing symptoms. Management is noted below. PLAN: 1. The patient is tolerating clear liquids and will keep on that at this time. 2. Avoid NSAIDs and aspirin. 3. Antiemetics and pain medications p.r.n. 4. PPI IV b.i.d. 5. We will plan for EGD and colonoscopy in a.m. 6. Further recommendation based upon progress and results of the above. JOB# [id number] [facility] [place] [facility]
[2020-04-05] MEDS: POTASSIUM CHLORIDE 10 MEQ 10 MEQ/100 ML BAG IV SCH (21:37)
[2020-04-06] MEDS: POTASSIUM CHLORIDE 10 MEQ 10 MEQ/100 ML BAG IV SCH ×2 (00:12→01:21)
[2020-04-06] MEDS: INSULIN REGULAR, HUMAN 100 UNIT/ML 3ML VIAL SUB-Q SCH ×4 (00:18→13:19)
[2020-04-06] MEDS: MORPHINE 2 MG/1 ML INJ IV PRN ×3 (01:20→12:23)
[2020-04-06] MEDS: HYDROmorphone 1 MG/1 ML INJ IV PRN ×4 (04:46→15:26)
[2020-04-06 06:39] LABS: Calcium 8.7 mg/dL (8.4-10.2); Hemolysis Index 4
[2020-04-06 06:43] LABS: BUN/Creatinine Ratio 1; Blood Urea Nitrogen 1 mg/dL (9-20)
[2020-04-06] MEDS ORDERED: SODIUM CHLORIDE 0.9% 1000 ML 1,000 ML IV SCH (09:30)
[2020-04-06] MEDS: SENNOSIDES 8.6 MG TAB PO SCH (10:00)
[2020-04-06] MEDS: PANTOPRAZOLE 40 MG INJ IV SCH (10:00)
[2020-04-06] MEDS: DOCUSATE SODIUM 100 MG CAP PO SCH (10:00)
[2020-04-06] MEDS ORDERED: SODIUM CHLORIDE 0.9% 1000 ML 1,000 ML ONE (13:55)
--- NOTE | 2020-04-06 13:59 | Anesthesia Day of Surgery ---
Anesthesia Day of Surgery - Day of Surgery Patient Examined: Yes Patient H&P Reviewed: Yes Patient is NPO: Yes
[2020-04-06] MEDS ORDERED: LIDOCAINE MPF (2%) 20 MG/1 ML VIAL 5 ML ONE (14:00)
[2020-04-06] MEDS ORDERED: propofoL 200 MG/20 ML VIAL IV ONE ×2 (14:03)
--- NOTE | 2020-04-06 14:04 | Anesthesia Consultation ---
Anesthesia Consult and Med Hx Date of service: 04/06/20 - Airway Anesthetic Teeth Evaluation: Poor (Going to have seven teeth pulled next week) ROM Head & Neck: Adequate Mental/Hyoid Distance: Adequate Mallampati Class: Class II Intubation Access Assessment: Probably Good - Pre-Operative Health Status ASA Pre-Surgery Classification: ASA3 Proposed Anesthetic Plan: MAC - Pulmonary Hx Smoking: Yes COPD: Yes - Cardiovascular System Hx Heart Murmur: Yes (VSD/PFO-closed up and asymptomatic per patient) - Central Nervous System Hx Psychiatric Problems: No - Gastrointestinal Hx Ulcer: Yes (GI Bleed) - Endocrine Hx Liver Disease: No (recurrent nonalcoholic pancreatitis for 15 years-acute on chronic) Hx Non-Insulin Dependent Diabetes: Yes - Hematic Hx Sickle Cell Disease: No - Other Systems Hx Alcohol Use: Yes Hx Cancer: No
[2020-04-06] MEDS ORDERED: WATER FOR IRRIG STERILE 1,000 ML BOTTLE ONE (14:05)
[2020-04-06] MEDS ORDERED: WATER FOR IRRIG STERILE 250 ML BOTTLE IR ONE (14:05)
[2020-04-06] MEDS ORDERED: GLYCOPYRROLATE 0.4 MG/2 ML INJ ONE (14:07)
--- NOTE | 2020-04-06 14:39 | Post Operative Note ---
Pre-op diagnosis: dysphagia, rectal bleeding Post-op diagnosis: same Findings: EGD: hiatal hernia, - mild gastritis (bx's) - otherwise nl - Flowers 60 F dilation performed Colon: small internal hemorrhoids Procedure: EGD w/ dilation, colonoscopy Anesthesia: MAC Surgeon: BATSHEVA ANN Estimated blood loss: none Pathology: list Specimen disposition: to lab Condition: stable Disposition: floor
[2020-04-06] MEDS ORDERED: HYDROmorphone 1 MG/1 ML INJ IV PRN (14:49)
[2020-04-06] MEDS ORDERED: ONDANSETRON 4 MG/2 ML INJ IV PRN (14:49)
[2020-04-06] MEDS ORDERED: HYDROmorphone 1 MG/1 ML INJ ONE ×2 (14:54→15:25)
--- NOTE | 2020-04-06 14:57 | Operative Report ---
PROCEDURE: Esophagogastroduodenoscopy with colonoscopy with Flowers dilatation. INDICATION: 1. GERD. 2. Dysphagia. MEDICATIONS: Propofol per DIMENSION MILL WORKER. COMPLICATIONS: None. DESCRIPTION OF PROCEDURE: The patient brought to procedure suite. The patient had the procedure discussed with him at length. All risks, complications and benefits discussed, after which the patient signed for the procedure to be performed. The patient was placed in left lateral decubitus position. Mouth block was placed in the patient's oral cavity. After adequate sedation medication as above, endoscope placed in the mouth and brought to level of the second portion of duodenum. Retroflexion view was performed. The patient's vital signs remained stable throughout the procedure. FINDINGS: There was a small hiatal hernia noted at GE junction. The esophagus otherwise appeared grossly normal. There is mild antral gastritis noted. Biopsies were taken of the antrum and the body and sent for pathology. The remaining stomach otherwise appeared to be normal. The duodenum appeared to be normal. Retroflexion view performed in the stomach showed no other pathology other than noted above. After this, especially using standard technique, Flowers dilatation using a 16-[place] balloon was performed. Postprocedure, the patient was satisfactory. The patient tolerated the procedure well. No complications during the procedure. IMPRESSION: 1. Hiatal hernia. 2. Irregular Z line. Biopsies performed at 40 cm. 3. Otherwise, grossly normal esophagus with Flowers dilatation as noted above. 4. Gastritis, biopsies performed. 5. Otherwise, normal EGD. RECOMMENDATIONS: 1. Follow up biopsy results. 2. If H. pylori positive, treat. 3. Advance diet to soft. 4. Colonoscopy, follow further recommendation based on colonoscopy results. JOB# [id number] CAB/NTS
--- NOTE | 2020-04-06 15:00 | Operative Report ---
PROCEDURE: Colonoscopy. INDICATION: 1. Rectal bleeding. 2. Change in bowel habits. MEDICATIONS: Propofol per MANAGER OF SOFTWARE. COMPLICATIONS: None. DESCRIPTION OF PROCEDURE: The patient brought to procedure suite. The patient had the procedure discussed with him at length. All risks, complications and benefits discussed, after which the patient signed for the procedure to be performed. The patient was placed in left lateral decubitus position. Rectal exam performed prior to insertion of the scope. After adequate sedation medication as above, scope was introduced into the rectum and brought to level of the cecum. Ileocecal valve, appendiceal orifice, cecal strap were visualized. Colonoscope was then removed and mucosa visualized. Prep quality was fair to poor. The patient's vital signs remained stable throughout the procedure. FINDINGS: This is a fair to poor prep and so cannot rule out small lesions. There were no obvious mass lesions, polyps or diverticula noted during this procedure. Retroflexion view performed in the rectum showed small internal hemorrhoids. The patient tolerated the procedure well. No complications during the procedure. IMPRESSION: 1. Fair to poor prep and so cannot rule out very small lesions. 2. Internal hemorrhoids. 3. Otherwise, normal colonoscopy. RECOMMENDATIONS: 1. High-fiber diet. 2. Advance diet. 3. If tolerating soft diet, okay to discharge from GI standpoint. 4. Repeat colonoscopy in 5 years. JOB# [id number] CAB/NTS
[2020-04-06 17:06] VITALS: BP 117/80
--- NOTE | 2020-04-06 17:09 | Discharge Summary ---
Providers - Providers Date of Admission: 04/05/20 09:28 Date of discharge: 04/06/20 Attending physician: EDMOND MEDINA 04/04/20 14:17 Consult to Physician [CONS] Urgent Comment: Consulting Provider: BATSHEVA ANN Physician Instructions: Reason For Exam: GIB, acute on chronic pancreatitis Primary care physician: BODY MASKER Hospitalization Condition: Stable Hospital course: This is a 49-year-old male with recurrent nonalcoholic pancreatitis for 15 years, chronic constipation, ? VSD/PFO, ? Stomach disease and nicotine abuse (1/2 PPD x36 years) who presents to the emergency department on 04/04 with complaints of severe abdominal pain, vomiting and diarrhea for 3 to 4 days. Patient states the pain started Thursday after he ate fast food and the pain described as 10/10 burning sensation to bilateral lower quadrants. During the same timeframe patient also experienced diarrhea with hematochezia and melena. Patient will be admitted to the hospital service for IV analgesia, kept n.p.o., IV Protonix, serial H&H and a GI consult has been placed.At the time of my examination this morning patient still complains of diffuse abdominal pain and inability to tolerate his clear liquid diet. However per the RN he consumed 100% of his tray and asked for additional intake. GI has seen the patient and plans for a EGD/colonoscopy in the a.m., patient is n.p.o. after midnight. Patient also has not had any more melena or hematochezia Discharge Diagnosis; (1) GIB (gastrointestinal bleeding), s/p EGD and colonoscopy (2) Acute on chronic pancreatitis - alcohol cessation counseling done (3) Gastroenteritis (4) Hyponatremia Presented with a sodium 135, 04/05 133 (5) Hypokalemia Repeated as needed (6) Hypochloremia Presented with chloride 97.6, 03/2998 s/p IVF Trended BMP (7) Tobacco abuse disorder Smoking cessation counseling done (8) DVT prophylaxis SCDs bilateral extremities Disposition: DC-01 TO HOME OR SELFCARE Time spent for discharge: 34 minutes Core Measure Documentation - Palliative Care Palliative Care/ Comfort Measures: Not Applicable - Core Measures Any of the following diagnoses?: none Exam - Constitutional Vitals: Temp Pulse Resp BP Pulse Ox 97.6 F 96 H 20 117/80 96 04/06/20 16:19 04/06/20 16:19 04/06/20 16:19 04/06/20 16:19 04/06/20 16:19 Plan Activity: advance as tolerated Weight Bearing Status: Weight Bear as Tolerated Diet: advance as tolerated Follow up with: PRIMARY CARE, [Primary Care Provider] - 3-5 Days BATSHEVA ANN MD [Staff Physician] - 7 Days Prescriptions: Pantoprazole [Protonix] 40 mg PO QDAY #30 tablet
--- NOTE | 2020-04-06 17:17 | Post Anesthesia Evaluation ---
- Post Anesthesia Evaluation Patient Participated: Yes Airway Patent: Yes Stable Respiratory Function: Yes Nausea/Vomiting: No Temp > 96.8F: Yes Pain Manageable: Yes Adequeate Hydration: Yes Anesthesia Complications: No Block Receding Appropriately: Not Applicable Patient on Ventilator: No
== END 2020-04-06 18:24 | disposition home or self-care (01) | DRG 377 ==
LOC: ED 18:06 → 3A 04-04 14:17 → OBSVTOIN 04-05 09:28
PROVIDERS: ADMIT Internal Medicine; ATTEND Internal Medicine
PROC: 0DJD8ZZ Inspection of Lower Intestinal Tract, Via Natural or Artificial Opening Endoscopic (ICD-10-PCS; principal; 2020-04-06)
PROC: 0DB68ZX Excision of Stomach, Via Natural or Artificial Opening Endoscopic, Diagnostic (ICD-10-PCS; 2020-04-06)
PROC: 0D758ZZ Dilation of Esophagus, Via Natural or Artificial Opening Endoscopic (ICD-10-PCS; 2020-04-06)
DX: K29.71 Gastritis, unspecified, with bleeding (principal); K85.90 Acute pancreatitis without necrosis or infection, unspecified; E87.1 Hypo-osmolality and hyponatremia; K86.1 Other chronic pancreatitis; K52.9 Noninfective gastroenteritis and colitis, unspecified; E87.6 Hypokalemia; E87.8 Other disorders of electrolyte and fluid balance, not elsewhere classified; F17.200 Nicotine dependence, unspecified, uncomplicated; R13.10 Dysphagia, unspecified; K44.9 Diaphragmatic hernia without obstruction or gangrene; K64.8 Other hemorrhoids; Z71.6 Tobacco abuse counseling; Z79.899 Other long term (current) drug therapy
CPT/HCPCS: 36415; 74022; 74177; 80048; 80053; 81001; 82962; 83690; 84484; 85014; 85018; 85025; 85610; 85730; 88305; 88342; 93005; 96374; 96375; 99406; G0378; C9113; J1170; J1885; J2270; J2405; J2704; J3480; J7030; Q0162; Q9967

== ENCOUNTER 2021-03-03 05:41 | Emergency (ER) | payer OTHER ==
[2021-03-03] MEDS ORDERED: diphenhydrAMINE 50 MG/ML VIAL IV ONE (06:18)
[2021-03-03] MEDS ORDERED: KETOROLAC 30 MG/1 ML INJ IV ONE (06:18)
[2021-03-03] MEDS ORDERED: SODIUM CHLORIDE 0.9% 1000 ML 1,000 ML IV ONE (06:18)
[2021-03-03] MEDS ORDERED: FAMOTIDINE 20 MG/2 ML INJ IV ONE (06:18)
[2021-03-03] MEDS ORDERED: METOCLOPRAMIDE 10 MG/2 ML INJ IV ONE (06:18)
--- NOTE | 2021-03-03 06:32 | Emergency Department Report ---
ED Abdominal Pain HPI - General Stated Complaint: ABD PAIN/ACID REFLUX Time Seen by Provider: 03/03/21 06:12 - History of Present Illness Initial Comments: Patient presents because of abdominal pain. He has a long history of stomach issues and chronic pancreatitis. He has been undergoing nerve blocks to address the chronic pain issue. Patient is here because of the symptoms. He states that he underwent a nerve block yesterday. It seems to have been unsuccessful because he is having more abdominal pain. He states that his pancreas feels inflamed. He has had nausea and vomiting. There is no hematemesis or coffee- ground emesis. There is no fever or chills. He states that the pain is in epigastric and upper abdominal pain that radiates into his back. This is similar to his prior episodes of pancreatitis. He has noted no alleviating fac tors. He states that normally, the block that he has last for several months. - Related Data Home Medications Medication Instructions Recorded Confirmed Last Taken Cyclobenzaprine [Flexeril 10 MG 10 mg PO TID PRN 04/04/20 04/04/20 03/28/20 TAB] Gabapentin 400 mg PO Q8HR 04/04/20 04/04/20 03/28/20 Previous Rx's Medication Instructions Recorded Last Taken Type Nithya Root [Nithya] 250 mg PO QID PRN #30 capsule 01/19/20 Unknown Rx Pantoprazole [Protonix] 40 mg PO QDAY #30 tablet 04/06/20 Unknown Rx Hyoscyamine Subl [Levsin Sl 0.125 0.125 mg SL Q6HR PRN #20 tab 03/03/21 Unknown Rx TAB] Ondansetron [Zofran Odt] 4 mg PO Q8HR #20 tab.rapdis 03/03/21 Unknown Rx Pantoprazole [Protonix] 40 mg PO BID #60 tablet 03/03/21 Unknown Rx Sucralfate [Carafate] 1 gm PO ACHS #120 tablet 03/03/21 Unknown Rx Allergies Allergy/AdvReac Type Severity Reaction Status Date / Time No Known Allergies Allergy Verified 03/12/13 23:13 ED Review of Systems ROS: Stated complaint: ABD PAIN/ACID REFLUX Other details as noted in HPI Comment: All other systems reviewed and negative Constitutional: denies: fever Eyes: denies: eye pain ENT: denies: throat pain Respiratory: denies: cough Cardiovascular: denies: chest pain Endocrine: denies: unexplained weight loss Gastrointestinal: as per HPI Genitourinary: denies: dysuria Musculoskeletal: as per HPI Skin: denies: rash Neurological: denies: headache Hematological/Lymphatic: denies: easy bruising ED Past Medical Hx - Past Medical History Hx Liver Disease: No (recurrent nonalcoholic pancreatitis for 15 years-acute on chronic) Hx Sickle Cell Disease: No Hx COPD: Yes Additional medical history: chronic pancreatitis, Bowel obstruction. Chronic Pain, Neck pain - Surgical History Additional Surgical History: B/L shoulder - Family History Family history: hypertension - Social History Smoking Status: Current Every Day Smoker Substance Use Type: Other ( We discussed tobacco cessation x3 minutes) - Medications Home Medications: Home Medications Medication Instructions Recorded Confirmed Last Taken Type Nithya Root [Nithya] 250 mg PO QID PRN #30 capsule 01/19/20 04/04/20 Unknown Rx Cyclobenzaprine [Flexeril 10 MG 10 mg PO TID PRN 04/04/20 04/04/20 03/28/20 History TAB] Gabapentin 400 mg PO Q8HR 04/04/20 04/04/20 03/28/20 History Pantoprazole [Protonix] 40 mg PO QDAY #30 tablet 04/06/20 Unknown Rx Hyoscyamine Subl [Levsin Sl 0.125 0.125 mg SL Q6HR PRN #20 tab 03/03/21 Unknown Rx TAB] Ondansetron [Zofran Odt] 4 mg PO Q8HR #20 tab.rapdis 03/03/21 Unknown Rx Pantoprazole [Protonix] 40 mg PO BID #60 tablet 03/03/21 Unknown Rx Sucralfate [Carafate] 1 gm PO ACHS #120 tablet 03/03/21 Unknown Rx ED Physical Exam - General Limitations: No Limitations, Other ( pulse ox was noted and normal. Is not hypoxic.) General appearance: alert, in no apparent distress, other ( He appears uncomfortable and is leaning forward.) - Head Head exam: Present: atraumatic, normocephalic, normal inspection - Eye Eye exam: Present: normal appearance, EOMI. Absent: scleral icterus - ENT ENT exam: Present: normal exam, normal orophraynx, normal external ear exam - Neck Neck exam: Absent: meningismus - Respiratory Respiratory exam: Present: normal lung sounds bilaterally. Absent: respiratory distress - Cardiovascular Cardiovascular Exam: Present: regular rate, normal rhythm - GI/Abdominal GI/Abdominal exam: Present: soft, tenderness ( Upper abdomen without rebound). Absent: guarding, rebound, pulsatile mass - Extremities Exam Extremities exam: Present: normal capillary refill. Absent: pedal edema - Back Exam Back exam: Absent: CVA tenderness (R), CVA tenderness (L) - Neurological Exam Neurological exam: Present: alert, oriented X3, CN II-XII intact. Absent: motor sensory deficit - Psychiatric Psychiatric exam: Present: normal affect, normal mood - Skin Skin exam: Present: warm, dry ED Course Vital Signs 03/03/21 06:40 Temperature 98.2 F Pulse Rate 77 Respiratory 18 Rate Blood Pressure 128/81 O2 Sat by Pulse 97 Oximetry - Reevaluation(s) Reevaluation #1: 03/03/21 06:20 IV and labs were ordered. Medications were ordered. Reevaluation #2: 03/03/21 07:57 Labs have been reviewed. Lipase is minimally elevated. Patient certainly does not appear to be septic or toxic. I believe discharge would be appropriate. ED Medical Decision Making - Lab Data Result diagrams: 03/03/21 06:52 03/03/21 06:18 - Medical Decision Making Patient presented with an exacerbation of chronic pain. This is related to chronic pancreatitis. He does not appear to be jaundiced. There is no evidence of acute hepatitis. He certainly does not have intractable vomiting that would necessitate admission. There is no profound electrolyte derangement related to vomiting. He has been hydrated. Patient does not have any history of trauma that would suggest injury. There is no exertional component. He has no chest pain. I do not believe this represents referred pain from cardiac sources. He does not have a pulsatile mass on exam. There is no pulse deficit. He states that this is related to his chronic issue. I do not believe this represents AAA. Critical Care Time: No Critical care attestation.: If time is entered above; I have spent that time in minutes in the direct care of this critically ill patient, excluding procedure time. ED Disposition Clinical Impression: Acute epigastric pain Chronic pancreatitis Qualifiers: Pancreatitis type: unspecified pancreatitis type Qualified Code(s): K86.1 - Other chronic pancreatitis Disposition: HOME / SELF CARE / HOMELESS Is pt being admited?: No Does the pt Need Aspirin: No Condition: Stable Instructions: Chronic Pancreatitis, Abdominal Pain, Adult, [id number] Additional Instructions: Have a clear liquid diet until your pain resolves. Then extend the clear liquid diet for 24 more hours. If you remain pain-free, have a full liquid diet. Use full liquids for 48 hours. If you remain pain-free, go to a bland diet for 48 hours. Advance her diet as tolerated. Return for problems. Follow-up with your regular doctor for recheck and further evaluation. Continue home medication. Prescriptions: Sucralfate [Carafate] 1 gm PO ACHS #120 tablet Hyoscyamine Subl [Levsin Sl 0.125 TAB] 0.125 mg SL Q6HR PRN #20 tab PRN Reason: Pain, Moderate (4-6) Pantoprazole [Protonix] 40 mg PO BID #60 tablet Ondansetron [Zofran Odt] 4 mg PO Q8HR #20 tab.lucille Referrals: SOILA PLATT MD [Primary Care Provider] - 3-5 Days RONY DE LUNA MD [Staff Physician] - 3-5 Days
[2021-03-03 06:42] VITALS: BP 128/81
[2021-03-03 07:34] LABS: Hematocrit 42.1 % (35.5-45.6); Hemoglobin 14.6 gm/dl (11.8-15.2); Mean Corpuscular HGB Conc 35 % (32-34); Mean Corpuscular Volume 88 fl (84-94); Platelet Count 207 K/mm3 (140-440); Red Blood Count 4.78 M/mm3 (3.65-5.03); Red Cell Distribution Width 14.7 % (13.2-15.2)
[2021-03-03 07:48] LABS: Alanine Aminotransferase 20 units/L (7-56); Albumin 3.8 g/dL (3.9-5); BUN/Creatinine Ratio 4; Blood Urea Nitrogen 4 mg/dL (9-20); Calcium 9.2 mg/dL (8.4-10.2); Hemolysis Index 88
[2021-03-03] MEDS ORDERED: HALOPERIDOL LACTATE 5 MG/1 ML INJ IV ONE (08:05)
== END 2021-03-03 09:08 | disposition home or self-care (01) ==
LOC: ED 05:41
DX: K86.1 Other chronic pancreatitis (principal); R10.13 Epigastric pain; J44.9 Chronic obstructive pulmonary disease, unspecified; M54.2 Cervicalgia; G89.29 Other chronic pain; Z98.890 Other specified postprocedural states; F17.290 Nicotine dependence, other tobacco product, uncomplicated
CPT/HCPCS: 36415; 80053; 83690; 85027; 96361; 96374; 96375; 99283; J1200; J1630; J1885; J2765; J7030

== ENCOUNTER 2021-10-31 16:42 | Emergency (ER) | payer OTHER ==
[2021-10-31 17:03] VITALS: BP 111/72
[2021-10-31 18:53] LABS: Basophils % (Auto) 0.5 % (0.0-1.8); Eosinophils # (Auto) 0.2 K/mm3 (0.0-0.4); Eosinophils % (Auto) 2.8 % (0.0-4.3); Hematocrit 43.5 % (35.5-45.6); Hemoglobin 14.6 gm/dl (11.8-15.2); Lymphocytes # (Auto) 2.8 K/mm3 (1.2-5.4); Lymphocytes % (Auto) 49.6 % (13.4-35.0); Mean Corpuscular HGB Conc 34 % (32-34); Mean Corpuscular Volume 91 fl (84-94); Monocytes # (Auto) 0.5 K/mm3 (0.0-0.8); Monocytes % (Auto) 9.3 % (0.0-7.3); Platelet Count 206 K/mm3 (140-440); Red Blood Count 4.76 M/mm3 (3.65-5.03)
[2021-10-31 18:55] LABS: Bilirubin,Urine NEG (Negative); Blood,Urine NEG (Negative); Color,Urine Straw (Yellow); Protein,Urine <15 mg/dL mg/dL (Negative); RBC,Urine < 1.0 /HPF (0.0-6.0); Urobilinogen,Urine < 2.0 mg/dL (<2.0)
[2021-10-31 18:56] LABS: BUN/Creatinine Ratio 3; Blood Urea Nitrogen 3 mg/dL (9-20); Calcium 8.9 mg/dL (8.4-10.2); Hemolysis Index 13
[2021-10-31 18:58] LABS: WBC,Urine < 1.0 /HPF (0.0-6.0)
== END 2021-10-31 19:00 | disposition left against medical advice (07) ==
LOC: ED 16:42
DX: R10.9 Unspecified abdominal pain (principal); Z53.21 Procedure and treatment not carried out due to patient leaving prior to being seen by health care provider
CPT/HCPCS: 36415; 80048; 81001; 82150; 83690; 85025

== ENCOUNTER 2021-11-07 14:09 | Emergency (ER) | payer OTHER ==
[2021-11-07 15:57] VITALS: BP 119/82
[2021-11-07 16:01] LABS: Basophils % (Auto) 0.5 % (0.0-1.8); Eosinophils # (Auto) 0.1 K/mm3 (0.0-0.4); Eosinophils % (Auto) 1.5 % (0.0-4.3); Hematocrit 47.8 % (35.5-45.6); Hemoglobin 15.7 gm/dl (11.8-15.2); Lymphocytes # (Auto) 1.3 K/mm3 (1.2-5.4); Lymphocytes % (Auto) 19.2 % (13.4-35.0); Mean Corpuscular HGB Conc 33 % (32-34); Mean Corpuscular Volume 90 fl (84-94); Monocytes # (Auto) 0.4 K/mm3 (0.0-0.8); Monocytes % (Auto) 6.4 % (0.0-7.3); Platelet Count 237 K/mm3 (140-440); Red Blood Count 5.29 M/mm3 (3.65-5.03); Red Cell Distribution Width 13.8 % (13.2-15.2)
[2021-11-07 16:21] LABS: INR 0.8 (0.87-1.13)
[2021-11-07 16:26] LABS: Alanine Aminotransferase 17 units/L (7-56); Albumin 3.8 g/dL (3.9-5); Bilirubin,Direct 0.2 mg/dL (0-0.2); Blood Urea Nitrogen 4 mg/dL (9-20); Calcium 9.3 mg/dL (8.4-10.2); Hemolysis Index 8
[2021-11-07 16:31] LABS: BUN/Creatinine Ratio 6
[2021-11-07] MEDS ORDERED: SODIUM CHLORIDE 0.9% 1000 ML 1,000 ML IV ONE (16:52)
[2021-11-07] MEDS ORDERED: MORPHINE 4 MG/1 ML INJ IV ONE ×2 (16:52→17:03)
[2021-11-07] MEDS ORDERED: ONDANSETRON 4 MG/2 ML INJ IV ONE (16:52)
--- NOTE | 2021-11-07 18:31 | Cat Scan Report ---
CT ABDOMEN AND PELVIS WITH CONTRAST HISTORY: abd pain 100 ML OMNI 300 COMPARISON: Prior CT on 04/04/2020 TECHNIQUE: Routine abdominal and pelvic CT exam performed following intravenous contrast administrat ion.. All CT scans at this location are performed using CT dose reduction for ALARA by means of autom ated exposure control. FINDINGS: CT ABDOMEN: Lung Bases: No significant abnormality. Liver: No significant abnormality. Biliary: No significant abnormality. Spleen: No significant abnormality. Unenlarged. Pancreas: Calcifications consistent with chronic pancreatitis again seen. No findings to suggest acut e pancreatitis. Adrenals: No significant abnormality. Kidneys: No significant abnormality. Lymphatics: No lymphadenopathy. Vasculature: No significant abnormality. Bowel/Peritoneum: No significant abnormality. No free air. No free fluid. CT PELVIC: : No significant abnormality. Lymphatics: No lymphadenopathy. Osseous Structures: No aggressive appearing osseous lesions. Additional Findings: None IMPRESSION: 1. Chronic pancreatitis again seen. No evidence of acute pancreatitis. No fluid collections. Signer Name: Mike Youngblood MD Signed: 11/07/2021 6:27 PM Workstation Name: [id number]
[2021-11-07 19:58] LABS: Bilirubin,Urine Negative (Negative); Blood,Urine Negative (Negative); Color,Urine Yellow (Yellow)
[2021-11-07 19:59] LABS: Protein,Urine <15 mg/dL mg/dL (Negative); Urobilinogen,Urine 0.2 mg/dL (<2.0)
[2021-11-07 20:01] LABS: Bacteria,Urine 1+ /HPF (Negative); WBC,Urine < 1.0 /HPF (0.0-6.0)
--- NOTE | 2021-11-07 20:02 | Emergency Department Report ---
ED Abdominal Pain HPI - General Chief Complaint: Abdominal Pain Stated Complaint: ABD PAIN/PANCREATITIS Time Seen by Provider: 11/07/21 16:59 Source: patient Mode of arrival: Ambulatory Limitations: No Limitations - History of Present Illness Initial Comments: This is a 51-year-old male nontoxic, well nourished in appearance, no acute signs of distress presents to the ED with c/o of nausea and vomiting and abdominal pain several days. Patient describes vomiting as food content and yellow gastric acid. Patient describes abdominal pain as cramping and aching with level of 8/10 diffuse. Patient denies chest pain, short of breath, fever, hemoptysis, blood in stool, chills, headache, stiff neck, numbness or tingling. Patient denies any diarrhea or constipation. Denies any blood in stool. Patient denies any recent travels. Patient denies any allergies. Past medical history includes pancreatitis. Patient stated had a alcoholic beverage prior to symptoms several days ago. MD Complaint: abdominal pain -: days(s) Location: diffuse Radiation: none Migration to: no migration Severity: mild Severity scale (0 -10): 8 Quality: cramping, aching Consistency: constant Improves With: nothing Worsens With: nothing Associated Symptoms: nausea, vomiting. denies: diarrhea, fever, chills, constipation, dysuria, hematemesis, hematochezia, melena, hematuria, anorexia, syncope - Related Data Home Medications Medication Instructions Recorded Confirmed Last Taken Cyclobenzaprine [Flexeril 10 MG 10 mg PO TID PRN 04/04/20 04/04/20 03/28/20 TAB] Gabapentin 400 mg PO Q8HR 04/04/20 04/04/20 03/28/20 Previous Rx's Medication Instructions Recorded Last Taken Type Nithya Root [Nithya] 250 mg PO QID PRN #30 capsule 01/19/20 Unknown Rx Pantoprazole [Protonix] 40 mg PO QDAY #30 tablet 04/06/20 Unknown Rx Hyoscyamine Subl [Levsin Sl 0.125 0.125 mg SL Q6HR PRN #20 tab 11/07/21 Unknown Rx TAB] Ondansetron [Zofran ODT TAB] 4 mg PO Q8HR #20 tab.rapdis 11/07/21 Unknown Rx Pantoprazole [Protonix TAB] 40 mg PO BID #60 tablet 11/07/21 Unknown Rx Sucralfate [Carafate] 1 gm PO ACHS #120 tablet 11/07/21 Unknown Rx Allergies Allergy/AdvReac Type Severity Reaction Status Date / Time No Known Allergies Allergy Verified 10/31/21 17:03 ED Review of Systems ROS: Stated complaint: ABD PAIN/PANCREATITIS Other details as noted in HPI Comment: All other systems reviewed and negative Constitutional: denies: chills, fever Eyes: denies: eye pain, eye discharge, vision change ENT: denies: ear pain, throat pain Respiratory: denies: cough, shortness of breath, wheezing Cardiovascular: denies: chest pain, palpitations Endocrine: no symptoms reported Gastrointestinal: abdominal pain, nausea, vomiting. denies: diarrhea, constipation, hematemesis, melena, hematochezia Genitourinary: denies: urgency, dysuria Musculoskeletal: denies: back pain, joint swelling, arthralgia Skin: denies: rash, lesions Neurological: denies: headache, weakness, paresthesias Psychiatric: denies: anxiety, depression Hematological/Lymphatic: denies: easy bleeding, easy bruising ED Past Medical Hx - Past Medical History Hx Liver Disease: No (recurrent nonalcoholic pancreatitis for 15 years-acute on chronic) Hx Sickle Cell Disease: No Hx COPD: Yes Additional medical history: chronic pancreatitis, Bowel obstruction. Chronic Pain, Neck pain - Surgical History Additional Surgical History: B/L shoulder - Social History Smoking Status: Current Every Day Smoker Substance Use Type: Other ( We discussed tobacco cessation x3 minutes) - Medications Home Medications: Home Medications Medication Instructions Recorded Confirmed Last Taken Type Nithya Root [Nithya] 250 mg PO QID PRN #30 capsule 01/19/20 04/04/20 Unknown Rx Cyclobenzaprine [Flexeril 10 MG 10 mg PO TID PRN 04/04/20 04/04/20 03/28/20 History TAB] Gabapentin 400 mg PO Q8HR 04/04/20 04/04/20 03/28/20 History Pantoprazole [Protonix] 40 mg PO QDAY #30 tablet 04/06/20 Unknown Rx Hyoscyamine Subl [Levsin Sl 0.125 0.125 mg SL Q6HR PRN #20 tab 11/07/21 Unknown Rx TAB] Ondansetron [Zofran ODT TAB] 4 mg PO Q8HR #20 tab.rapdis 11/07/21 Unknown Rx Pantoprazole [Protonix TAB] 40 mg PO BID #60 tablet 11/07/21 Unknown Rx Sucralfate [Carafate] 1 gm PO ACHS #120 tablet 11/07/21 Unknown Rx ED Physical Exam - General Limitations: No Limitations General appearance: alert, in no apparent distress - Head Head exam: Present: atraumatic, normocephalic - Eye Eye exam: Present: normal appearance - Neck Neck exam: Present: normal inspection, full ROM. Absent: lymphadenopathy - Respiratory Respiratory exam: Present: normal lung sounds bilaterally. Absent: respiratory distress, wheezes, rales, rhonchi, stridor, chest wall tenderness, accessory muscle use, decreased breath sounds, prolonged expiratory - Cardiovascular Cardiovascular Exam: Present: regular rate, normal rhythm, normal heart sounds. Absent: bradycardia, tachycardia, irregular rhythm, systolic murmur, diastolic murmur, rubs, gallop - GI/Abdominal GI/Abdominal exam: Present: soft, tenderness (diffuse), normal bowel sounds. Absent: distended, guarding, rebound, rigid, diminished bowel sounds - Extremities Exam Extremities exam: Present: normal inspection, full ROM, normal capillary refill. Absent: tenderness - Back Exam Back exam: Present: normal inspection, full ROM. Absent: tenderness, CVA t enderness (R), CVA tenderness (L), muscle spasm, paraspinal tenderness, vertebral tenderness, rash noted - Neurological Exam Neurological exam: Present: alert, oriented X3, normal gait - Psychiatric Psychiatric exam: Present: normal affect, normal mood - Skin Skin exam: Present: warm, dry, intact, normal color. Absent: rash ED Course Vital Signs 11/07/21 11/07/21 15:56 17:51 Temperature 98.1 F Pulse Rate 88 Respiratory 16 16 Rate Blood Pressure 119/82 O2 Sat by Pulse 94 Oximetry - Reevaluation(s) Reevaluation #1: 11/07/21 20:01 Patient is speaking in full sentences with no signs of distress noted. ED Medical Decision Making - Lab Data Result diagrams: 11/07/21 15:32 11/07/21 15:32 Lab Results 11/07/21 11/07/21 11/07/21 Range/Units 15:32 15:32 15:32 WBC 6.5 (4.5-11.0) K/mm3 RBC 5.29 H (3.65-5.03) M/mm3 Hgb 15.7 H (11.8-15.2) gm/dl Hct 47.8 H (35.5-45.6) % MCV 90 (84-94) fl MCH 30 (28-32) pg MCHC 33 (32-34) % RDW 13.8 (13.2-15.2) % Plt Count 237 (140-440) K/mm3 Lymph % (Auto) 19.2 (13.4-35.0) % [place] % (Auto) 6.4 (0.0-7.3) % Eos % (Auto) 1.5 (0.0-4.3) % Baso % (Auto) 0.5 (0.0-1.8) % Lymph # (Auto) 1.3 (1.2-5.4) K/mm3 [place] # (Auto) 0.4 (0.0-0.8) K/mm3 Eos # (Auto) 0.1 (0.0-0.4) K/mm3 Baso # (Auto) 0.0 (0.0-0.1) K/mm3 Seg Neutrophils % 72.4 H (40.0-70.0) % Seg Neutrophils # 4.7 (1.8-7.7) K/mm3 PT 11.9 L (12.2-14.9) Sec. INR 0.80 L (0.87-1.13) Sodium 130 L (137-145) mmol/L Potassium 4.4 (3.6-5.0) mmol/L Chloride 97.6 L (98-107) mmol/L Carbon Dioxide 22 (22-30) mmol/L Anion Gap 15 mmol/L BUN 4 L (9-20) mg/dL Creatinine 0.7 L (0.8-1.3) mg/dL Estimated GFR > 60 ml/min BUN/Creatinine Ratio 6 % Glucose 104 H (75-100) mg/dL Calcium 9.3 (8.4-10.2) mg/dL Total Bilirubin 0.70 (0.1-1.2) mg/dL Direct Bilirubin 0.2 (0-0.2) mg/dL Indirect Bilirubin 0.5 mg/dL AST 19 (5-40) units/L ALT 17 (7-56) units/L Alkaline Phosphatase 140 H (35-129) units/L Total Protein 7.4 (6.3-8.2) g/dL Albumin 3.8 L (3.9-5) g/dL Albumin/Globulin Ratio 1.1 % Lipase 81 H (13-60) units/L Urine Color (Yellow) Urine Turbidity (Clear) Urine pH (5.0-7.0) Ur Specific [place] (1.003-1.030) Urine Protein (Negative) mg/dL Urine Glucose (UA) (Negative) mg/dL Urine Ketones (Negative) mg/dL Urine Blood (Negative) Urine Nitrite (Negative) Urine Bilirubin (Negative) Urine Urobilinogen (<2.0) mg/dL Ur Leukocyte Esterase (Negative) Urine WBC (Auto) (0.0-6.0) /HPF Urine RBC (Auto) (0.0-6.0) /HPF U Epithel Cells (Auto) (0-13.0) /HPF Urine Bacteria (Auto) (Negative) /HPF 11/07/21 Range/Units Unknown WBC (4.5-11.0) K/mm3 RBC (3.65-5.03) M/mm3 Hgb (11.8-15.2) gm/dl Hct (35.5-45.6) % MCV (84-94) fl MCH (28-32) pg MCHC (32-34) % RDW (13.2-15.2) % Plt Count (140-440) K/mm3 Lymph % (Auto) (13.4-35.0) % [place] % (Auto) (0.0-7.3) % Eos % (Auto) (0.0-4.3) % Baso % (Auto) (0.0-1.8) % Lymph # (Auto) (1.2-5.4) K/mm3 [place] # (Auto) (0.0-0.8) K/mm3 Eos # (Auto) (0.0-0.4) K/mm3 Baso # (Auto) (0.0-0.1) K/mm3 Seg Neutrophils % (40.0-70.0) % Seg Neutrophils # (1.8-7.7) K/mm3 PT (12.2-14.9) Sec. INR (0.87-1.13) Sodium (137-145) mmol/L Potassium (3.6-5.0) mmol/L Chloride (98-107) mmol/L Carbon Dioxide (22-30) mmol/L Anion Gap mmol/L BUN (9-20) mg/dL Creatinine (0.8-1.3) mg/dL Estimated GFR ml/min BUN/Creatinine Ratio % Glucose (75-100) mg/dL Calcium (8.4-10.2) mg/dL Total Bilirubin (0.1-1.2) mg/dL Direct Bilirubin (0-0.2) mg/dL Indirect Bilirubin mg/dL AST (5-40) units/L ALT (7-56) units/L Alkaline Phosphatase (35-129) units/L Total Protein (6.3-8.2) g/dL Albumin (3.9-5) g/dL Albumin/Globulin Ratio % Lipase (13-60) units/L Urine Color Yellow (Yellow) Urine Turbidity Clear (Clear) Urine pH 7.0 (5.0-7.0) Ur Specific [place] 1.005 (1.003-1.030) Urine Protein <15 mg/dl (Negative) mg/dL Urine Glucose (UA) Negative (Negative) mg/dL Urine Ketones Negative (Negative) mg/dL Urine Blood Negative (Negative) Urine Nitrite Negative (Negative) Urine Bilirubin Negative (Negative) Urine Urobilinogen 0.2 (<2.0) mg/dL Ur Leukocyte Esterase Negative (Negative) Urine WBC (Auto) < 1.0 (0.0-6.0) /HPF Urine RBC (Auto) 2.0 (0.0-6.0) /HPF U Epithel Cells (Auto) 1.0 (0-13.0) /HPF Urine Bacteria (Auto) 1+ (Negative) /HPF - Radiology Data [facility] [address] [place] [address] Cat Scan Report Signed Patient: ABRAHAM PERRIN MR#: [id number] : 1970 Acct:[id number] Age/Sex: 51 / M ADM Date: 11/07/21 Loc: ED Attending Dr: Ordering Physician: CECIL ESTEBAN Date of Service: 11/07/21 Procedure(s): CT abdomen pelvis w con Accession Number(s): [id number] [facility]EL[facility] WITH CONTRAST HISTORY: abd pain 100 ML OMNI 300 COMPARISON: Prior CT on 04/04/2020 TECHNIQUE: Routine abdominal and pelvic CT exam performed following intravenous contrast administration.. All CT scans at this location are performed using CT dose reduction for ALARA by means of automated exposure control. FINDINGS: CT ABDOMEN: Lung Bases: No significant abnormality. Liver: No significant abnormality. Biliary: No significant abnormality. Spleen: No significant abnormality. Unenlarged. Pancreas: Calcifications consistent with chronic pancreatitis again seen. No findings to suggest acute pancreatitis. Adrenals: No significant abnormality. Kidneys: No significant abnormality. Lymphatics: No lymphadenopathy. Vasculature: No significant abnormality. Bowel/Peritoneum: No significant abnormality. No free air. No free fluid. CT PELVIC: : No significant abnormality. Lymphatics: No lymphadenopathy. Osseous Structures: No aggressive appearing osseous lesions. Additional Findings: None IMPRESSION: 1. Chronic pancreatitis again seen. No evidence of acute pancreatitis. No fluid collections. Signer Name: Mike Youngblood MD Signed: 11/07/2021 6:27 PM Workstation Name: [id number] Transcribed By: LY Dictated By: Mike Youngblood MD Electronically Authenticated By: Mike Youngblood MD Signed Date/Time: 11/07/211826 DD/ 25 TD/TT: - Medical Decision Making This is a 51-year-old male that presents with chronic pancreatitis. Patient is stable and was examined by me. Labs obtained. UA obtained. CT of abdomen obtained and dictated by the radiologist. Patient is notified of the report with no questions noted by the patient. Vital signs are stable prior to discharge. Patient received medical treatment in the ED which patient stated symptoms has resovled and subsided. Was instructed note to operate any machinery due to possible drowsiness and stated someone will drive the patient home. A by mouth challenge has been obtained and patient tolerated well with no nausea vomiting. Educated patient on alcohol consumption and pancreatitis. Patient was also instructed to Follow-up with a primary care doctor in 3-5 days or if symptoms worsen and continue return to emergency room as soon as possible. At time of discharge, the patient does not seem toxic or ill in appearance. No acute signs of distress noted. Patient agrees to discharge treatment plan of care. No further questions noted by the patient. Critical care attestation.: If time is entered above; I have spent that time in minutes in the direct care of this critically ill patient, excluding procedure time. 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 Prescriptions: Sucralfate [Carafate] 1 gm PO ACHS #120 tablet Hyoscyamine Subl [Levsin Sl 0.125 TAB] 0.125 mg SL Q6HR PRN #20 tab PRN Reason: Pain, Moderate (4-6) Pantoprazole [Protonix TAB] 40 mg PO BID #60 tablet Ondansetron [Zofran ODT TAB] 4 mg PO Q8HR #20 tab.lucille Referrals: PRIMARY MD GIULIA [Primary Care Provider] - 3-5 Days CHELE HERNANDEZ MD [Staff Physician] - 3-5 Days [facility] [Provider Group] - 3-5 Days Time of Disposition: 20:09
== END 2021-11-07 20:54 | disposition home or self-care (01) ==
LOC: ED 14:09
DX: K85.90 Acute pancreatitis without necrosis or infection, unspecified (principal); R11.2 Nausea with vomiting, unspecified; J44.1 Chronic obstructive pulmonary disease with (acute) exacerbation; Z98.890 Other specified postprocedural states; Z79.899 Other long term (current) drug therapy; F17.200 Nicotine dependence, unspecified, uncomplicated
CPT/HCPCS: 36415; 74177; 80048; 80076; 81001; 83690; 85025; 85610; 96361; 96374; 96375; 99284; J2270; J2405; J7030; Q9967